=== PATIENT | female | born 1970 | race Caucasian/White ===

== ENCOUNTER 2023-09-17 03:15 | Inpatient (IN) | payer OTHER, SELFPAY ==
[2023-09-16] VITALS (11 sets, daily range): BP systolic 120–174; BP diastolic 58–116; PULSE 55–66
[2023-09-16 18:06] LABS: % Basophils 0.5 % (0-2); % Immature Granulocytes 0.4 % (0-0.5); % Lymphocytes 23.8 % (20.5-51.1); % Monocytes 8.6 % (1.7-9.3); % Neutrophils 65.7 % (42.2-75.2); Absolute Eosinophils 0.1 10^3/uL (0-0.7); Absolute Lymphocytes 1.9 10^3/uL (1.2-3.4); Absolute Monocytes 0.7 10^3/uL (0.1-0.6); Absolute Neutrophils 5.3 10^3/uL (1.4-6.5); Hematocrit 40.9 % (37.0-47.0); Hemoglobin 14.3 g/dL (12.0-16.0); Mean Corpuscular Volume 88.7 fL (81.0-99.0); Mean Platelet Volume 10.2 fL (7.4-10.4); Nucleated Red Blood Cells % 0 %; Platelet Count 225 10^3/uL (130-400); Red Blood Cell Count 4.61 10^6/uL (4.20-5.40)
[2023-09-16 18:19] LABS: INR 0.94; PT 12.8 Sec (11.4-14.6)
[2023-09-16 18:29] LABS: Blood Urea Nitrogen 34 mg/dl (7-17); Calcium 9.5 mg/dl (8.4-10.2); Carbon Dioxide 21 mmol/L (22-30); Chloride 106 mmol/L (98-107); Glucose 115 mg/dl (70-99); Sodium 139 mmol/L (135-145); eGFR > 60.00
[2023-09-16 18:33] LABS: Troponin I < 0.012 ng/ml
--- NOTE | 2023-09-16 19:06 | ED.GENMED ---
History of Present Illness
General
Chief Complaint: Fainting/Passed Out
Source: patient
Exam Limitations: none
Time Seen by Provider: 09/16/23 18:14
Nursing documentation reviewed up to this point in time: agreed with
Travel History
Have you had any contact with someone who has COVID-19?: No
Do you have any symptoms of coronavirus? Fever > 100 degrees, chills, cough, shortness of breath, sore throat, loss of taste or smell, muscle aches, or headache?: No
History of Present Illness
History of Present Illness:
Patient presents to ED for evaluation secondary to multiple syncopal episodes over the past 5 days. Patient states that on Monday, patient started to feel dizzy with nausea sensation when she was come back from work. Patient proceeded to check her
blood pressure and it was noted to be elevated. Patient has had similar symptoms in the past secondary to elevated blood pressure. After she checked her blood pressure, patient was walking to her bedroom, to lay down, when she passed out for few
minutes, without injury. Patient got up and was able to lay down in bed, where she has spent most of the days for the past 4 days. Unfortunately, patient has had number of similar passing out episodes at home, including this afternoon, when she
was sitting on the edge of her bed and passed out, falling forward onto the floor. Patient is complaining of head, neck pain, and nose pain. Denies preceding chest palpitations. Denies shortness of breath. Denies loss of sensation or weakness.
Denies blurred vision. 2 years ago, patient was treated with lisinopril, which she discontinued 1 year ago, when her blood pressure normalized, without consulting her primary care physician. Yesterday, patient called her primary care physician who
restarted lisinopril. And patient has taken 2 tablets since then. Denies recent illness. Denies recent travel. Denies recent surgery. Denies leg pain or swelling. Denies back pain. Denies family history of heart disease. Denies family
history of blood clots.
Review of Systems
Review of Systems
Allergies reviewed?: Yes
All Other Systems: ROS reviewed and negative except as documented in HPI and ROS
Constitutional: Reports no symptoms
EENT: Reports no symptoms
Respiratory: Reports no symptoms
Cardiac: Reports syncope
ABD/GI: Reports no symptoms
: Reports no symptoms
Musculoskeletal: Reports neck pain and other (nose pain)
Skin: Reports no symptoms
Neurological: Reports headache
Phy Exam
Physical Exam
Physical Exam:
Physical Exam
General: mild distress, not acutely ill. afebrile
Head: nc/at. eomi. erythema/swelling of bridge of nose noted.
Neck: supple. no meningeal signs.
Heart: s1/s2 regular rate and rhythm, no murmur. equal radial pulses.
Lungs: no acute respiratory distress. clear bilaterally. chest wall nontender to palpation.
Abdomen: normal bowel sounds. not tender.
Neuro: alert and oriented. no focal neurological deficits
Skin: no rash
Psychiatric: well kept. interactive and cooperative
Extremities: no edema. no calf tenderness.
Course
Orders/Labs/Results
Orders:
Orders
09/16/23 17:40
Electrocardiogram (*1) Urgent
Reason for Study: Syncope
EKG- Treatment ONCE
09/16/23 18:00
Basic Metabolic Panel Urgent
Complete Blood Count/With Diff Urgent
Prothrombin Time Urgent
Troponin I Urgent
09/16/23 18:32
CT Cervical Spine W/o Iv Contr Urgent
Comment:
Reason For Exam: trauma
CT Facial Bones W/o Iv Contras Urgent
Comment:
Reason For Exam: trauma
CT Head W/o Iv Contrast Urgent
Comment:
Reason For Exam: dizziness/syncope
09/16/23 20:26
Orthostatic VS- Treatment ONCE
09/16/23 22:36
0.9% Sodium Chloride 1000 ml [Nss] 1,000 ml IV BOLUS
Ondansetron Injectable [Zofran] 4 mg IV NOW STA
09/16/23 22:37
Meclizine [Antivert] 25 mg PO NOW STA
09/17/23 00:25
D-Dimer Urgent
09/17/23 02:38
Admit/Transfer Patient As Directed
Co-Sign Provider:
Level of Care: Inpatient admission
Assign to:: Telemetry
Physician / Group: John
Diagnosis: Recurrent Syncope
Reason for Telemetry: Syncope
Date to Stop Telemetry: 09/19/23
Time to Stop Telemetry: 11:00
Reason for Hospitalization: Recurrent Syncope
Expected length of stay greater than two midnights?: Yes
ELOS- Estimated Length of Stay in days: 2
I certify the patient meets the requirements for IP care: Yes
09/17/23 02:39
Code Status As Directed
Resuscitation Status: Full Code
09/17/23 02:42
Acetaminophen [Tylenol] 650 mg PO NOW STA
09/17/23 03:00
Flush (0.9% Sodium Chloride) [Flush (Nss)] See Dose Instructions IV PER PROTOCOL
09/17/23 04:04
Acetaminophen [Tylenol] 650 mg PO Q4HPRN PRN
HydrALAZINE [Apresoline] 5 mg IV Q6HPRN PRN
Morphine Sulfate 2 mg IV Q4HPRN PRN
09/17/23 04:04
CARDIOLOGY CONSULT Routine
Consulting Provider: Marty Carbone
Was physician already notified: No
Reason for consult: Recurrent Syncope
Consult Notification Routine
Specialty to Notify: Cardiology
Consult Notification Routine
Specialty to Notify: Gastroenterology
GASTROINTESTINAL CONSULT Routine
Consulting Provider: Dakota Gomez
Was physician already notified: No
Reason for consult: Dysphagia
Activity As Directed
Activity Level: Ambulate
With Assistance
Bladder Scan As Directed
Follow Bladder Retention/Intermittent Cath Algorithm?: Yes
PRN if no void in __ hours: 6
Frequency: Per Retention Algorithm
If Bladder Scan Result >: 400
then:: Straight cath
Cold Application As Directed
Location: Face
Frequency: Intermittent q1h
Duration of Application: No longer than 20 minutes
Method of Delivery: Ice packs
EKG with chest pain [ECG as needed] As Directed
ECG as needed for:: Chest Pain
I/O [Intake/ Output] As Directed
Frequency: Per unit guidelines
Neurological Checks As Directed
Frequency: q4h
Orthostatic Vital Signs As Directed
Orthostatic VS Frequency: BID
Pneumatic Compression Sleeves As Directed
Type: Knee high
Straight Cath As Directed
Frequency: Per Retention Algorithm
Additional Instructions: straight cath as needed per acute urinary retention algorithm for 24 hrs
Additional Instructions: for bladder scan greater than 400 mL
Vital Signs As Directed
Frequency: Per unit guidelines
Weight As Directed
Frequency: Daily
Oxygen Therapy [O2 Therapy] [RESP] Routine
Titrate/Wean O2 to maintain O2 sat greater than (%): 94
Ot Eval And Treat Routine
PT Consult [Pt Eval And Treat] Routine
Activity Level: Ambulate
With Assistance
Speech Therapy Eval & Treat Routine
DX Deep Vein Thrombosis Video Routine
09/17/23 06:00
EKG [Electrocardiogram (*1)] IN AM
Reason for Study: Chest Pain
09/17/23 06:03
Basic Metabolic Panel IN AM
Complete Blood Count/No Diff IN AM
Magnesium IN AM
TSH Reflex To Free T4 Routine
09/17/23 08:00
Sertraline HCl [Zoloft] 50 mg PO DAILY
09/18/23 Breakfast
Regular
At Your Request: Full Participation
09/19/23 11:00
DC Protocol for Telemetry ONCE
Abnormal Lab Results
09/16/23
18:00
Absolute Monos (auto) 0.7 H 10^3/uL
(0.1-0.6)
Carbon Dioxide 21 L mmol/L
(22-30)
BUN 34 H mg/dl
(7-17)
Glucose 115 H mg/dl
(70-99)
09/16/23 18:00
09/16/23 18:00
Vital Signs
Initial and Last Documented VS:
Initial Vital Signs
Temp Pulse Resp BP Pulse Ox
98.4 F 76 20 163/104 100
09/16/23 17:32 09/16/23 17:32 09/16/23 17:32 09/16/23 17:32 09/16/23 17:32
Last Documented Vital Signs
Temp Pulse Resp BP Pulse Ox
98.4 F 56 17 145/98 96
09/16/23 17:32 09/17/23 13:30 09/17/23 13:30 09/17/23 13:00 09/17/23 13:30
MDM/Problems Addressed
MDM/Problems Addressed:
History and exam concerning for multiple syncopal episodes, of unclear etiology at this point. Possible arrhythmic event versus vasovagal response versus less like VBI versus cerebellar infarct.
CT head/c-spine/facial bones: nasal fracture without any other abnormalities.
Pt treated symptomatically with IVF/zofran/meclizine. Unfortunately, patient remains symptomatic. As such, will admit for further evaluation and treatment.
*Critical Care Note
Total Time (30-74mins, 75-104mins- exclusive of procedures): Not Applicable
ED Attending Note
-
Portions of this chart may have been created with voice recognition software.� Occasional wrong word or��sound alike� substitutions may have occurred due to the inherent limitations of voice recognition software.
Discharge Plan
Departure
Patient Disposition: Admit
Date of Disposition: 09/17/23
Time of Disposition: 00:21
Presentation/result/management discussed w/ accepting MD/DO: Hospitalist
Discharge Problem:
Syncope
Interventions
Interventions:
*Risk Screen - Suicide Last Done: 09/16/23 17:48
*General Assessment Last Done: 09/16/23 17:48
*Neglect/Abuse Screening Last Done: 09/16/23 17:48
ED- Fall Risk Assessment Last Done: 09/16/23 17:48
*ED COVID-19 Vaccine History Last Done: 09/16/23 17:48
ED- Cardiac Assessment Last Done: 09/16/23 17:50
ED- Neurological Assessment Last Done: 09/16/23 17:48
[2023-09-16] MEDS: NSS 1000 IV (22:45)
[2023-09-16] MEDS: ZOFRAN 4 MG IV (22:46)
[2023-09-16] MEDS: ANTIVERT 25 MG PO (22:46)
[2023-09-17] VITALS (26 sets, daily range): BP systolic 102–162; BP diastolic 52–98; PULSE 53–61; BMI 25.6
[2023-09-17 01:01] LABS: D-Dimer 0.35 ug/mlFEU (0.00-0.50)
--- NOTE | 2023-09-17 02:43 | HPS.HSE ---
Family Physician
-
Family Physician: Bob Laguerre
Chief Complaint
-
Syncope
History of Present Illness
Patient is a 53y F with PMH significant for depression who presents to ED complaining of syncope and headache. Patient states that she has passed out 5 times in the past week. She notes that she checked her BP on Monday and it was quite
elevated at home. She had previously been on lisinopril for BP control, but notes that she has not taken this in a few years. She contacted her PCP late this week and got a new Rx for lisinopril which she has now been taking for the past 2 days.
Her symptoms have not appreciably improved.
This evening patient was seated on the edge of her bed and a friend was taking her BP. She lost consciousness during this process and fell forwards - landing on her face. She presented to the ED for further evaluation.
Currently, she complains of facial 'pressure' and headache. Evaluation in the ED reveals no evidence of intracranial abnormality. Minimally depressed nasal bone fracture is appreciated.
Patient notes that her symptoms of syncope typically occur after eating or drinking. She notes symptoms that will occur with any liquid - hot or cold - and occasionally with very dry foods. She reports a sensation of the food or liquid getting
'stuck' in the throat. She has no pain and she is always able to swallow, but with a strange tightness / fullness sensation. This causes her to feel lightheaded and patient has learned to quickly sit to avoid passing out. Family placed cameras in
her home and she has since realized that she has actually passed out on numerous occasions when she thought she had not. This has been ongoing for quite some time - not only this past week.
Medical History
Past Medical History
Past Medical History: Reports Other
Additional Past Medical History:
Hypertension
Anxiety / Depression
Cervical DDD / Radiculopathy (L C7-8)
Congenital Horseshoe Kidney
Past Surgical History: Reports Other
Additional Past Surgical History:
Horseshoe Kidney Surgery in Childhood
Social History
Tobacco: Non-smoker
Alcohol: Occasional (Rarely.)
Drug: Marijuana
Family History
Family History: Not pertinent
Allergies / Home Medications
Allergies reflects when Allergies were last updated in [facility].
Home Medications with original date entered in [facility]
Allergy/Medication List:
Allergies
Allergy/AdvReac Type Severity Reaction Status Date / Time
No Known Allergies Allergy Unverified 09/16/23 17:32
Home Medications
lisinopril 10 mg tablet 10 mg PO DAILY 09/16/23
sertraline 50 mg tablet (Zoloft) 50 mg PO DAILY 09/16/23
Review of Systems
-
History Source: Patient
A 12 point ROS was completed and negative except as noted: Yes
Constitutional: Denies Fever, Fatigue or Chills
EENT: Denies Sore Throat or Runny Nose
Respiratory: Denies Cough or Trouble Breathing
Cardiac: Reports Syncope (recurrent / frequent); Denies Chest Pain, Diaphoresis or Palpitations
Abdomen/GI: Reports Nausea and Other (Trouble swallowing intermittently.); Denies Abdominal Pain, Vomiting, Diarrhea, Constipated or Bloody Stools
: Denies Dysuria or Frequency
Neurological: Reports Headache and Other (Lightheaded); Denies Dizzy
Psych: Denies Depression or Anxiety
Physical Exam
Vital Signs
Vital Signs
Temp Pulse Resp BP Pulse Ox
98.4 F 64 12 114/68 98
09/16/23 17:32 09/17/23 02:30 09/17/23 02:30 09/17/23 02:00 09/17/23 02:30
Physical Exam
General: Other (53y F in no acute distress.)
HEENT: Moist mucous membranes, PERRLA and Other (Some facial swelling and developing ecchymosis around the eyes.)
Respiratory: Clear; No Wheezes, Rales or Rhonchi
Cardiac: S1/S2, Regular Rhythm and Bradycardia; No Murmur
GI: Soft, Non Tender, Non Distended and Normal Bowel Sounds
Musculoskeletal: No Clubbing, No Cyanosis and No Edema
Neuro: AO x 3
Laboratory Results
-
09/16/23 18:00
09/16/23 18:00
Laboratory Results
PT 12.8 Sec (11.4-14.6) 09/16/23 18:00
INR 0.94 09/16/23 18:00
Total Bilirubin Cancelled 09/16/23 18:00
AST Cancelled 09/16/23 18:00
ALT Cancelled 09/16/23 18:00
Alkaline Phosphatase Cancelled 09/16/23 18:00
Troponin I < 0.012 ng/ml 09/16/23 18:00
Impression/Plan
-
A/P: Patient is a 53y F with PMH significant for hypertension and depression who presents to ED complaining of recurrent syncope and facial pain s/p fall.
Recurrent Syncope
- Admit for further evaluation and treatment.
- Monitor on telemetry to evaluate for arrhythmia.
- Patient with degree of resting bradycardia at present.
- Suspect vasovagal response - likely triggered by swallowing difficulty / sensation and resulting in syncope.
- Has apparently been a very frequent and long-standing issue for this patient.
- Will ask cardiology to evaluate as may benefit from ambulatory monitoring if no significant arrhythmia noted during stay.
- Evaluate swallow dysfunction as noted below.
Nasal Bone Fracture
Headache
- CT imaging in the ED is without acute abnormality in the head or cervical spine.
- Facial bones show minimally depressed fracture of the nasal bone.
- Supportive care including cold application, pain control, etc.
- Monitor neurologic status and repeat imaging if any significant changes.
Swallow Dysfunction
- Patient describes fullness / difficulty swallowing with solids and liquids.
- Has been longstanding issue.
- Speech therapy evaluation.
- GI evaluation for additional recommendations / evaluation.
Benign Hypertension
- BP markedly elevated for the past week according to the patient.
- Previously on lisinopril, but has been off of this for a few years.
- Follow BP closely - has improved significantly since arrival without specific intervention.
- Hydralazine for very high BP.
- Consider starting PO regimen if needed for adequate BP control.
- Would avoid chronotropic meds given baseline bradycardia and recurrent syncope.
Anxiety / Depression
- Stable. Continue Zoloft. No recent changes in med / dose / etc.
DVT Prophylaxis: SCDs
Code Status: Full
[2023-09-17] MEDS: TYLENOL 650 MG PO (02:51)
[2023-09-17 06:19] LABS: Hematocrit 37.8 % (37.0-47.0); Mean Corp Hgb Conc. 34.4 g/dL (33.0-37.0); Mean Corpuscular Hgb 31.2 pg (27.0-31.0); Mean Corpuscular Volume 90.6 fL (81.0-99.0); Mean Platelet Volume 9.8 fL (7.4-10.4); Platelet Count 179 10^3/uL (130-400); Red Blood Cell Count 4.17 10^6/uL (4.20-5.40); White Blood Cell Count 5.8 10^3/uL (4.8-10.8)
[2023-09-17 06:37] LABS: Blood Urea Nitrogen 25 mg/dl (7-17); Calcium 8.6 mg/dl (8.4-10.2); Carbon Dioxide 23 mmol/L (22-30); Chloride 110 mmol/L (98-107); Glucose 106 mg/dl (70-99); Potassium 4.4 mmol/L (3.5-5.1); Sodium 139 mmol/L (135-145); eGFR > 60.00
[2023-09-17] MEDS: ZOLOFT 50 MG PO (07:50)
--- NOTE | 2023-09-17 09:23 | CON.CAR ---
Consultation
Consultation Request
Date/Time Consultation Requested: 09/17/2023 7: 00
Date/Time Consultation Performed: 09/17/2023 8: 00
Requesting Provider: Jes
Performing Provider: Tona
Reason for Consultation: Syncope
Medical History
-
Chief Complaint: Syncope
History of Present Illness:
Marce has a history of hypertension. She has had syncope for many years. It usually is in the setting of drinking water or eating. It has happened in the past with standing as well.
She has had 5 syncopal episodes over the past week. She has had nausea as well. There has been no chest pain or shortness of breath. At least one of the episodes was associated with palpitations. She tries to sit down when the episodes occur.
However yesterday she passed out. She has witnessed the episodes on a camera at her house. Of note with the episode yesterday she had facial trauma. She did not have any palpitations chest pain or shortness of breath at the time of the event.
She admits to significant stress taking care of her mother on hospice.
Past Medical History
Past Medical History: HTN, Psychiatric (Anxiety/depression) and Other (Cervical disc disease with radiculopathy in cervical spine)
Past Surgical History: Other (Horseshoe kidney surgery as a child, )
Social History
Tobacco: Non-Smoker
Alcohol: None
Drug: Marijuana
Personal:
Living: With Family
Employment: Retired
Family History
Family History: Other (There is no family history of premature coronary artery disease)
Allergies / Home Medications
Allergy/AdvReac Type Severity Reaction Status Date / Time
No Known Allergies Allergy Unverified 09/16/23 17:32
Medication Instructions Recorded Confirmed Type
lisinopril 10 mg tablet 10 mg PO DAILY 09/16/23 09/16/23 History
sertraline 50 mg tablet (Zoloft) 50 mg PO DAILY 09/16/23 09/16/23 History
Review of Systems
-
History Source: Patient
All other systems: Negative unless noted
Constitutional: No Symptoms
EENT: No Symptoms
Respiratory: No Symptoms
Cardiac: Syncope
Abdomen/GI: Nausea
: No Symptoms
Musculoskeletal: Other (Complains of pain from facial trauma)
Skin: No Symptoms
Neurological: Dizzy
Endocrine: No Symptoms
Hematologic/Lymphatic: No Symptoms
Physical Exam
Vital Signs
Temp Pulse Resp BP Pulse Ox
98.4 F 55 15 118/84 99
09/16/23 17:32 09/17/23 08:45 09/17/23 08:45 09/17/23 08:00 09/17/23 08:45
Lab Results
09/17/23 06:03
09/17/23 06:03
Troponin I < 0.012 ng/ml 09/16/23 18:00
General: Well developed, well nourished in NAD.
Neck: Supple, no JVD, HJR, carotids +2 B/L, no bruits bilaterally.
Heart: Non displaced PMI, RRR, no murmurs, No S3, S4, no rubs.
Lungs: Clear to auscultation bilaterally, no wheeze, rhonchi, rubs bilaterally,
normal expiratory phase.
Abdomen: Normal bowel sounds, soft, non-tender, non-distended.
Extremities: No clubbing, cyanosis or edema bilaterally.
Neuro: Grossly nonfocal, awake, alert and oriented x3.
Impression / Plan
-
Impression:
Syncope
History of hypertension
Anxiety/depression
History of congenital horseshoe kidney surgery
Plan:
She has syncopal episodes which are likely vasovagal etiology
They occur with drinking fluids or eating at times and perhaps she has esophageal dysfunction triggering a vagal event
She has had issues with hypertension over the past week as well but blood pressure is okay
Will check echocardiogram to exclude structural heart disease
Continue to follow on telemetry
She is seeing speech therapy and will await evaluation as correcting a esophageal/swallowing issue may prevent further episodes in the future
She should try to hydrate is much as possible and avoid prolonged standing
Might consider outpatient monitor
Data Reviewed
-
EKG: Tracing Personally Visualized and interpreted
Medical Tests (Nuc Med, Echo etc): Report Reviewed by me
Labs: Labs Reviewed by me
Old Records: Reviewed
--- NOTE | 2023-09-17 09:54 | W.PN.HOSP.TC ---
Today's Communication/Plan
-
Awaiting echo
Monitor heart rate
Assessment / Plan
Assessment / Plan
53y F with PMH significant for hypertension and depression who presents to ED complaining of recurrent syncope and facial pain s/p fall.
1. Recurrent Syncope, chronic issue
- Patient with degree of resting bradycardia at present.
- Suspect vasovagal response - likely triggered by swallowing difficulty / sensation and resulting in syncope.
- Has apparently been a very frequent and long-standing issue for this patient.
- Monitor on telemetry to evaluate for arrhythmia.
- cardiology to evaluate - echo pending
- Evaluate swallow dysfunction
2. Nasal Bone Fracture with Headache
�- CT imaging in the ED is without acute abnormality in the head or cervical spine.
�- Facial bones show minimally depressed fracture of the nasal bone.
- Continue Supportive care including cold application, pain control
- Monitor neurologic status and repeat imaging if any significant changes.
3. Swallow Dysfunction - chronic problem
�- Patient describes fullness / difficulty swallowing with solids and liquids.
�- Has been longstanding issue.
- Speech therapy evaluation.
- GI evaluation for additional recommendations / evaluation.
4. Benign Hypertension - chronic
- BP markedly elevated for the past week according to the patient.
- Previously on lisinopril, but has been off of this for a few years.
- Follow BP closely - has improved significantly since arrival.
- Hydralazine for very high BP.
- Consider starting PO regimen if needed for adequate BP control.
- avoid chronotropic meds given baseline bradycardia and recurrent syncope.
5. Anxiety / Depression - Stable.�
- Continue Zoloft.� No recent changes in med / dose / etc.
DVT Prophylaxis:� SCDs
Code Status:� Full
Anticipated Discharge: 24 - 48 hours
Subjective/Interval History
-
Date of Service: September 17, 2023
Objective Data
-
Labs:
Laboratory Results
09/17/23
06:03
WBC 5.8
Hgb 13.0
Hct 37.8
Plt Count 179 D
Sodium 139
Potassium 4.4
Chloride 110 H
Carbon Dioxide 23
BUN 25 H
Creatinine 0.6
Glucose 106 H
Calcium 8.6
Vital Signs:
Vital Signs
Temp Pulse Resp BP Pulse Ox
98.4 F 55 15 118/84 99
09/16/23 17:32 09/17/23 08:45 09/17/23 08:45 09/17/23 08:00 09/17/23 08:45
--- NOTE | 2023-09-17 10:48 | PTOTSP ---
Speech Therapy
Swallowing Function: [employer]2B SALES MANAGER observed patient with several bites of cracker and sips of thin liquids in which patient appeared to tolerate as she did not exhibit any overt clinical s/sx of aspiration. Patient reported the food and liquid getting 'stuck'
in her sternum area.
Patient shared that she has been experiencing this 'stuck' sensation for a few weeks but has been experiencing these syncope episides (after PO) for years. OF note, patient reports having a 'pinched 7 and 8 nerve' for approximately 1 year.
Given the above information, recommend consideration of VSE to quantify her swallow function. [employer]2B SALES MANAGER noted GI consult placed.
Recommendations:
1) Continuation of regular consistency solids and thin liquids
2) Standard aspiration precautions
3) Medications as tolerated
4) Consideration of VSE
5) Consideration of GI consult
Plan: B2B SALES MANAGER will continue to follow; pending hospitalization.
--- NOTE | 2023-09-17 14:06 | CON.GI ---
Consultation
-
Date/Time Consultation Requested: 09/17/2022
Date/Time Consultation Performed: 09/17/2022
Performing Provider: Dakota Gomez
Reason for Consultation: dysphagia
Medical History
Chief Complaint / HPI
Chief Complaint: dysphagia
History of Present Illness:
Patient is a 53-year-old female with history of depression who presents with syncope. She had multiple episodes of syncope in the past and she passed out about 5 times this past week. She reports that her events occur when she has a sensation of
'liquid getting stuck' in her throat. This has been ongoing for past few years. Never had been evaluated for this. She denies dysphagia to solid food however. Her sensation of dysphagia only occurs with liquid. She denies weight loss. No
odynophagia. Never had EGD.
Past Medical History
Past Medical History: HTN and Other
Past Surgical History: Other
Social History
Tobacco: Non-Smoker
Alcohol: Occasional
Allergies / Home Medications
Allergy/AdvReac Type Severity Reaction Status Date / Time
No Known Allergies Allergy Unverified 09/16/23 17:32
Medication Instructions Recorded
lisinopril 10 mg tablet 10 mg PO DAILY 09/16/23
sertraline 50 mg tablet (Zoloft) 50 mg PO DAILY 09/16/23
Review of Systems
Vital Signs
Temp Pulse Resp BP Pulse Ox
98.4 F 56 17 145/98 96
09/16/23 17:32 09/17/23 13:30 09/17/23 13:30 09/17/23 13:00 09/17/23 13:30
Physical Exam
Exam
General: Well Developed and Well Nourished
HEENT: Normocephalic and Anicteric
Respiratory: Clear
Cardiac: S1/S2
GI: Soft, Non Tender, Non Distended and Normal Bowel Sounds
Results
WBC 5.8 10^3/uL (4.8-10.8) 09/17/23 06:03
Hgb 13.0 g/dL (12.0-16.0) 09/17/23 06:03
Hct 37.8 % (37.0-47.0) 09/17/23 06:03
MCV 90.6 fL (81.0-99.0) 09/17/23 06:03
Plt Count 179 10^3/uL (130-400) D 09/17/23 06:03
Absolute Neuts (auto) 5.3 10^3/uL (1.4-6.5) 09/16/23 18:00
PT 12.8 Sec (11.4-14.6) 09/16/23 18:00
INR 0.94 09/16/23 18:00
Sodium 139 mmol/L (135-145) 09/17/23 06:03
Potassium 4.4 mmol/L (3.5-5.1) 09/17/23 06:03
Chloride 110 mmol/L (98-107) H 09/17/23 06:03
Carbon Dioxide 23 mmol/L (22-30) 09/17/23 06:03
BUN 25 mg/dl (7-17) H 09/17/23 06:03
Creatinine 0.6 mg/dL (0.6-1.0) 09/17/23 06:03
Calcium 8.6 mg/dl (8.4-10.2) 09/17/23 06:03
Total Bilirubin Cancelled 09/16/23 18:00
AST Cancelled 09/16/23 18:00
ALT Cancelled 09/16/23 18:00
Alkaline Phosphatase Cancelled 09/16/23 18:00
Diagnostic Image Results:
Prior GI Procedures:
EGD:
Colonoscopy:
Assessment / Plan
-
Patient is a 53-year-old female with history of HTN depression who presents with multiple episodes of syncope which reportedly is associated with / triggered by dysphagia.
Impression / Rec:
1. Dysphagia - she complains of liquid being 'stuck' in her throat. She denies dysphagia to solid foods. No associated weight loss or odynophagia. She had never been evaluated by GI or other specialist for this. Her dysphagia symptoms are
suggestive of underlying motility disorder rather than a structural/anatomical lesion. Her reported association with multiple and persistent syncopal episode with her dysphagia seems quite atypical. Will consider possible endo eval. Will follow.
Total Time Spent with Patient (in minutes): 55
-
-
Thank you for consultation and allowing me to participate in the patient's care. Please call the drilling field professional GI physician during the after hours with any questions or concerns.
--- NOTE | 2023-09-17 15:46 | CM ---
CM reviewed medical records. CM met with patient in room. Confirmed demographics. Patient denied history of VN, SNF or DME. patient is active with her PCP. Patient uses [facility] in [place].
PLAN: home no needs.
[2023-09-17] MEDS: MORPHINE SULFATE 2 MG IV ×2 (17:37→22:02)
--- NOTE | 2023-09-17 20:00 | PTCARENOTE ---
Emphasized to pt need to call for assist to get OOB. Pt verbalizes understanding that she is not to get up alone.
[2023-09-17] MEDS: FLUSH (NSS) 2 FLUSH IV (22:04)
[2023-09-18 03:10] VITALS: BP 134/66
[2023-09-18] MEDS: MORPHINE SULFATE 2 MG IV ×5 (03:12→20:40)
[2023-09-18] MEDS: FLUSH (NSS) 2 FLUSH IV (03:15)
[2023-09-18 05:26] VITALS: BMI 25.6
[2023-09-18] MEDS: TYLENOL 650 MG PO ×2 (05:27→18:03)
--- NOTE | 2023-09-18 06:00 | PTCARENOTE ---
Pt stated through the night that she had lightheadedness as usual.
[2023-09-18 07:00] VITALS: BP 118/74
[2023-09-18] MEDS: ZOLOFT 50 MG PO (07:47)
[2023-09-18 08:09] LABS: Hematocrit 37.8 % (37.0-47.0); Mean Corp Hgb Conc. 34.4 g/dL (33.0-37.0); Mean Corpuscular Hgb 30.6 pg (27.0-31.0); Mean Corpuscular Volume 88.9 fL (81.0-99.0); Platelet Count 192 10^3/uL (130-400); Red Blood Cell Count 4.25 10^6/uL (4.20-5.40); Red Cell Dist. Width 12.9 % (11.5-14.5)
[2023-09-18 08:26] LABS: Blood Urea Nitrogen 20 mg/dl (7-17); Calcium 8.8 mg/dl (8.4-10.2); Carbon Dioxide 26 mmol/L (22-30); Chloride 109 mmol/L (98-107); Estimated Creatinine Clearance 73 ml/min; Glucose 104 mg/dl (70-99); Potassium 4.5 mmol/L (3.5-5.1); Sodium 139 mmol/L (135-145); eGFR > 60.00
--- NOTE | 2023-09-18 10:59 | W.PN.GI.CBS2 ---
Addendum entered and electronically signed by Dakota Gomez MD 09/18/23 19:32:
I saw and examined the patient.
The PA's note was reviewed and I agree with the note.
Comment:
Agree with esophagram, will consider endo eval pending results. Will follow.
Original Note:
Today's Communication / Plan
-
concern for deglutition syncope
appreciate cards input
pt also hx cervical DDD but no prior surgery
check esophagram to rule out structural etiology, t/c EGD and manometry testing
discussed trial of using straw (which pt has done in past) to drink but states she does not usually gulp liquids and sit while drinking (to avoid falling if syncope occurs)
will follow
Assessment / Plan
-
Patient is a 53-year-old female with history of HTN depression who presents with multiple episodes of syncope which reportedly is associated with / triggered by dysphagia for last 5 years. Denies prior swallowing evaluation.
Impression / Rec:
- Dysphagia triggering syncope
other medical problems:
HTN
anxiety/depression
cervical DDD
radiculopathy
PLAN:
concern for deglutition syncope
appreciate cards input
pt also hx cervical DDD but no prior surgery
check esophagram to rule out structural etiology, t/c EGD and manometry testing
discussed trial of using straw (which pt has done in past) to drink but states she does not usually gulp liquids and sit while drinking (to avoid falling if syncope occurs)
will follow
Subjective
Subjective
Date of Service: September 18, 2023
on regular diet no stools no issues overnight
Objective
Data Reviewed
Laboratory Data:
Laboratory Results
09/18/23 07:09
09/18/23 07:09
Laboratory Results
PT 12.8 Sec (11.4-14.6) 09/16/23 18:00
INR 0.94 09/16/23 18:00
Magnesium 2.0 mg/dl (1.6-2.3) 09/17/23 06:03
Total Bilirubin Cancelled 09/16/23 18:00
AST Cancelled 09/16/23 18:00
ALT Cancelled 09/16/23 18:00
Alkaline Phosphatase Cancelled 09/16/23 18:00
Vital Signs and I&O:
Vital Signs
Temp Pulse Resp BP Pulse Ox
98.1 F 54 18 118/74 96
09/18/23 07:00 09/18/23 07:00 09/18/23 07:00 09/18/23 07:00 09/18/23 07:00
I&O
09/17/23 09/18/23 09/19/23
06:59 06:59 06:59
Intake Total 240 / 240
Balance 240 / 240
Physical Exam
Physical Exam
HEENT: Anicteric, Moist mucous membranes and Other (facial bruising )
Cardiology: Normal Sinus Rhythm
Pulmonary: Clear
GI: Soft, Non Distended and Non Tender
Extremities: No Edema
Neuro: Non Focal
[2023-09-18 11:00] VITALS: BP 140/82; BP 144/92; BP 160/98; PULSE 48; PULSE 58; PULSE 61
--- NOTE | 2023-09-18 12:12 | W.PN.CARDCBS ---
Addendum entered and electronically signed by Kev Villalobos DO 09/18/23 15:47:
I saw and examined the patient.
The Field Aide's note was reviewed and I agree with the note.
Comment:
Plan:
Work up for syncope ongoing including GI work up with esophagram for deglutition syncope
Echo unremarkable with preserved EF and no significant valve disease
7 day BardyCAM to be placed prior to d/c to be comprehensive
Outpt cardiac follow up to be arranged.
Original Note:
Today's Communication / Plan
-
Arranging for a 7 day CAM to be placed prior to d/c
Impression / Plan
-
PCP: Dr. Bob Laguerre
Cardiology: None prior to admission
Impression:
Syncope, possible deglutition syncope
History of hypertension
Anxiety/depression
History of congenital horseshoe kidney surgery
Echo 09/18/23: Study pending
Plan:
-GI notes reviewed and patient is scheduled for an esophagram to work-up possible structural etiology for her dysphagia.
-GI notes also suggest possible deglutition syncope and recommended to patient that she use a straw to drink, avoid gulping and stay seated while drinking
-Echo ordered and study pending
-No pauses of significant bradycardia on tele
-Arranging for a 7 day CAM monitor to be placed prior to d/c
-Will arrange for outpatient cardiology f/u
Progress Note - Addiction Social Worker
Subjective
Date of Service: September 18, 2023
No episodes of synocpe of near syncope in the last 24 hours
Objective
Labs:
09/18/23 07:09
09/18/23 07:09
Labs
Hgb 13.0 g/dL (12.0-16.0) 09/18/23 07:09
Hct 37.8 % (37.0-47.0) 09/18/23 07:09
Plt Count 192 10^3/uL (130-400) 09/18/23 07:09
PT 12.8 Sec (11.4-14.6) 09/16/23 18:00
INR 0.94 09/16/23 18:00
Sodium 139 mmol/L (135-145) 09/18/23 07:09
Potassium 4.5 mmol/L (3.5-5.1) 09/18/23 07:09
BUN 20 mg/dl (7-17) H 09/18/23 07:09
Creatinine 0.7 mg/dL (0.6-1.0) 09/18/23 07:09
Glucose 104 mg/dl (70-99) H 09/18/23 07:09
Troponins
09/16/23
18:00
Troponin I < 0.012
Vital Signs and I&O:
Vital Signs
Temp Pulse Resp BP Pulse Ox
97.9 F 48 18 140/82 100
09/18/23 11:00 09/18/23 11:00 09/18/23 11:00 09/18/23 11:00 09/18/23 11:00
Vital Signs
Temp Pulse Resp BP Pulse Ox
97.9 F 48 18 140/82 100
09/18/23 11:00 09/18/23 11:00 09/18/23 11:00 09/18/23 11:00 09/18/23 11:00
Intake & Output
09/16/23 09/17/23 09/18/23 09/19/23
06:59 06:59 06:59 06:59
Intake Total 240 / 240
Balance 240 / 240
Physical Exam
Physical Exam
Gen: NAD. AAO x3
HEENT: EOMI
Heart: Reg
Lungs: CTA B/L
Abdomen: +BS
Extremities: No edema bilaterally.
Neuro: Grossly nonfocal
--- NOTE | 2023-09-18 13:04 | CM ---
Patient seen bedside, reports no new concerns. CM will continue to follow for discharge planning needs.
Plan; home no needs anticipated.
[2023-09-18 15:00] VITALS: BP 154/83
--- NOTE | 2023-09-18 17:14 | W.PN.HOSP.TC ---
Today's Communication/Plan
-
see outlined plan
Assessment / Plan
Assessment / Plan
Assessment:
Recurrent syncope, acute on chronic
- concern for deglutition syncope (vasovagal syncope related to swallowing)
- Cards evaluating
- Echo normal. Setup outpatient 7 day monitor. Continue to monitor tele.
- GI evaluating, Esophagram ordered. May need EGD/Manometry
Nasal Bone Fracture with Headache
- CT imaging in the ED is without acute abnormality in the head or cervical spine.
- Facial bones show minimally depressed fracture of the nasal bone.
- supportive care, cold application, pain control
Swallow Dysfunction - chronic problem
- Patient describes fullness / difficulty swallowing with solids and liquids.
- Has been longstanding issue.
- Speech evaluating, possible VSE in AM
- GI following as above
Essentil Hypertension - chronic
- continue Lisinopril 10mg daily in AM if labs ok
- prn Hydralazine
Anxiety/Depression - Stable.�
- Continue Zoloft.�No recent changes in med/dose/etc.
DVT Prophylaxis:�SCDs
Code Status:�Full
Anticipated Discharge: 24 - 48 hours
Subjective/Interval History
-
Date of Service: September 18, 2023
no new complaints
Objective Data
-
Labs:
Laboratory Results
09/18/23
07:09
WBC 5.0
Hgb 13.0
Hct 37.8
Plt Count 192
Sodium 139
Potassium 4.5
Chloride 109 H
Carbon Dioxide 26
BUN 20 H
Creatinine 0.7
Glucose 104 H
Calcium 8.8
Vital Signs:
Vital Signs
Temp Pulse Resp BP Pulse Ox
97.9 F 51 18 154/83 100
09/18/23 15:00 09/18/23 15:00 09/18/23 15:00 09/18/23 15:00 09/18/23 15:00
I&O
09/17/23 09/18/23 09/19/23
06:59 06:59 06:59
Intake Total 240 / 240
Balance 240 / 240
Physical Exam
-
General: No Apparent Distress
HEENT: Normocephalic and Atraumatic
Respiratory: Negative Wheezes or Rales
Cardiac: Regular Rhythm and S1/S2
GI: Soft and Nontender
Genito-urinary: No Costovertebral Tender
Musculoskeletal: No Edema
Neuro: AO x 3
Hematologic / Lymphatic: No Lymphadenopathy
Psych: Calm
Data Reviewed
-
Total Time Spent with Patient (in minutes): 47
Labs: Labs Reviewed by me
[2023-09-18 19:15] VITALS: BP 139/84; BP 147/91; BP 164/92; PULSE 53; PULSE 57; PULSE 60
[2023-09-18 23:10] VITALS: BP 123/76
[2023-09-19] VITALS (7 sets, daily range): BP systolic 105–151; BP diastolic 69–99; PULSE 58–63; BMI 25.3
[2023-09-19] MEDS: MORPHINE SULFATE 2 MG IV ×5 (01:26→21:29)
[2023-09-19] MEDS: ZOLOFT 50 MG PO (07:42)
--- NOTE | 2023-09-19 08:08 | PTCARENOTE ---
Notified provider that the patient had a 2.2 second pause on telemetry at 0757 and is intermittently bradycardic to HR 30's. The patient reports feeling like she 'passed out' around the time of the alarm pause an endorses dizziness. The patient
reports feeling faint and weak. MD instructed to keep patient in bed and notified cardiology. EKG ordered and performed.
--- NOTE | 2023-09-19 08:15 | PTCARENOTE ---
aware that patient received morning PO Zoloft.
[2023-09-19 08:53] LABS: Blood Urea Nitrogen 17 mg/dl (7-17); Calcium 9.4 mg/dl (8.4-10.2); Carbon Dioxide 26 mmol/L (22-30); Chloride 103 mmol/L (98-107); Estimated Creatinine Clearance 76 ml/min; Glucose 101 mg/dl (70-99); Potassium 4.1 mmol/L (3.5-5.1); Sodium 140 mmol/L (135-145); eGFR > 60.00
--- NOTE | 2023-09-19 12:00 | W.PN.HOSP.TC ---
Today's Communication/Plan
-
await further direction by GI on workup
follow Cards recs
Assessment / Plan
Assessment / Plan
Assessment:
Recurrent syncope, acute on chronic
- concern for deglutition syncope (vasovagal syncope related to swallowing)
- Echo normal
- Tele with bradycardia, pause on 09/19/23 after patient attempted to swallow a pill. Tele otherwise unremarkable independent of swallowing.
- Follow cardiology recs.
- GI following
- Esophagram: Mild to moderate gastroesophageal reflux. Mild, likely peptic stricture of the distal esophagus, and possible associated subtle esophagitis. Delayed passage of a 13 mm barium tablet.
- await further GI workup
- if no GI intervention can treat underlying etiology, may need pacemaker to prevent the pauses/syncope.
Nasal Bone Fracture with Headache
- CT imaging in the ED is without acute abnormality in the head or cervical spine.
- Facial bones show minimally depressed fracture of the nasal bone.
- supportive care, cold application, pain control
Swallow Dysfunction - chronic problem
- Patient describes fullness / difficulty swallowing with solids and liquids.
- Esophagram: Mild to moderate gastroesophageal reflux. Mild, likely peptic stricture of the distal esophagus, and possible associated subtle esophagitis. Delayed passage of a 13 mm barium tablet.
- await further GI workup
- if no GI intervention can treat underlying etiology, may need pacemaker to prevent the pauses/syncope.
Essentil Hypertension - chronic
- hold Lisinopril
- prn Hydralazine
Anxiety/Depression - Stable.�
- Continue Zoloft.�No recent changes in med/dose/etc.
DVT Prophylaxis:�SCDs
Code Status:�Full
Anticipated Discharge: 24 - 48 hours
Subjective/Interval History
-
Date of Service: September 19, 2023
bradycardia is pause this morning when taking a pill/swallowing
was lightheaded and dizzy but now resolved
Objective Data
-
Labs:
Laboratory Results
09/19/23
06:29
Sodium 140
Potassium 4.1
Chloride 103
Carbon Dioxide 26
BUN 17
Creatinine 0.6
Glucose 101 H
Calcium 9.4
Vital Signs:
Vital Signs
Temp Pulse Resp BP Pulse Ox
98.5 F 58 18 124/85 100
09/19/23 11:00 09/19/23 11:00 09/19/23 11:00 09/19/23 11:00 09/19/23 11:00
I&O
09/18/23 09/19/23 09/20/23
06:59 06:59 06:59
Intake Total 240 / 240 480 / 480
Balance 240 / 240 480 / 480
Physical Exam
-
General: No Apparent Distress
HEENT: Normocephalic and Atraumatic
Respiratory: Negative Wheezes
Cardiac: Regular Rhythm and S1/S2
GI: Soft
Genito-urinary: No Costovertebral Tender
Neuro: AO x 3
Hematologic / Lymphatic: No Lymphadenopathy
Psych: Calm
Data Reviewed
-
Total Time Spent with Patient (in minutes): 47
Labs: Labs Reviewed by me
--- NOTE | 2023-09-19 14:36 | W.PN.GI.CBS2 ---
Addendum entered and electronically signed by Estrella Ledezma MD 09/19/23 20:18:
I saw and examined the patient.
The ASSISTANT TRACK COACH or PA's note was reviewed and I agree with the note.
Comment: 53-year-old female with history of hypertension presenting with episodes of syncope after swallowing liquids which happens sporadically, has been having these episodes in the last 5 years, once or twice a month but in the last 1 year, has
not had episodes. No trouble swallowing solids, liquids or pills but syncopal episodes happen after liquids. No abdominal pain, nausea or vomiting. No heartburn or trouble swallowing. No constipation, diarrhea, blood in the stool or black stool.
Never had upper endoscopy or colonoscopy. No NSAID use.
Reports being admitted to [facility] few years ago but not had an endoscopy at that time. Esophagram with barium tablet today showing mild to moderate reflux, possible peptic stricture in the distal esophagus and possible esophagitis.
-Plan for upper endoscopy tomorrow
N.p.o. past midnight
If stricture noted, possible dilation.
Noted cardiology evaluation as well.
Needs outpatient colonoscopy at some point.
Will follow
Original Note:
Today's Communication / Plan
-
concern for deglutition syncope
further episodes of syncope today
UGI as noted with distal esophageal stricture
plan for EGD in AM
ok for clear diet
cards following for need for underlying pacer
consider OP motility testing if EGD stable
discussed trial of using straw (which pt has done in past) to drink but states she does not usually gulp liquids and sit while drinking (to avoid falling if syncope occurs)
will follow
Assessment / Plan
-
Patient is a 53-year-old female with history of HTN depression who presents with multiple episodes of syncope which reportedly is associated with / triggered by dysphagia for last 5 years. Denies prior swallowing evaluation.
09/19 esophagram with barium tablet-- hypopharynx and cervical esophagus unremarkable, mild to moderate GERD. mild likely peptic stricture distal esophagus and possible subtle esophagitis, delayed passage of 13 mm barium tablet
Impression / Rec:
- Dysphagia triggering syncope
-concern for peptic stricture distal esophagus with GERD/esophagitis and delayed passage of 13 mm barium tablet
other medical problems:
HTN
-anxiety/depression
-cervical DDD
-radiculopathy
PLAN:
concern for deglutition syncope
further episodes of syncope today
UGI as noted with distal esophageal stricture
plan for EGD in AM
ok for clear diet
cards following for need for underlying pacer
consider OP motility testing if EGD stable
discussed trial of using straw (which pt has done in past) to drink but states she does not usually gulp liquids and sit while drinking (to avoid falling if syncope occurs)
will follow
Subjective
Subjective
Date of Service: September 19, 2023
NPO, still with episode of feeling of passing out this am and with EGD study
Objective
Data Reviewed
Laboratory Data:
Laboratory Results
09/18/23 07:09
09/19/23 06:29
Laboratory Results
PT 12.8 Sec (11.4-14.6) 09/16/23 18:00
INR 0.94 09/16/23 18:00
Magnesium 2.0 mg/dl (1.6-2.3) 09/17/23 06:03
Total Bilirubin Cancelled 09/16/23 18:00
AST Cancelled 09/16/23 18:00
ALT Cancelled 09/16/23 18:00
Alkaline Phosphatase Cancelled 09/16/23 18:00
Vital Signs and I&O:
Vital Signs
Temp Pulse Resp BP Pulse Ox
98.5 F 58 18 124/85 100
09/19/23 11:00 09/19/23 11:00 09/19/23 11:00 09/19/23 11:00 09/19/23 11:00
I&O
09/18/23 09/19/23 09/20/23
06:59 06:59 06:59
Intake Total 240 / 240 480 / 480
Balance 240 / 240 480 / 480
Physical Exam
Physical Exam
HEENT: Anicteric, Moist mucous membranes and Other (facial bruising)
Cardiology: Normal Sinus Rhythm
Pulmonary: Clear
GI: Soft, Non Distended and Non Tender
Extremities: No Edema
Neuro: Non Focal
--- NOTE | 2023-09-19 16:57 | W.PN.CARDCBS ---
Addendum entered and electronically signed by Haider Staton MD 09/19/23 17:57:
I saw and examined the patient.
The House Detective's note was reviewed and I agree with the note.
Comment: GEN: No distress, awake, Ox3
HEENT: supple, anicteric, mmm
LUNGS: CTA, no wheezes/rales
CV: Reg, S1/S2, 1/6 syst LSB, no gallop
ABD: soft, BS+, NT/ND
EXT: No edema
NEURO: Gross non-focal
SKIN: No rash
Plan:
No new tele events
Would consider pacemaker if no clear reversible GI treatment for deglutition syncope can be found.
Pacemaker would be last option in 53 year old.
Original Note:
Today's Communication / Plan
-
Continue to follow on tele
Impression / Plan
-
PCP: Dr. Bob Laguerre
Cardiology: None prior to admission
Impression:
Syncope, possible deglutition syncope
History of hypertension
Anxiety/depression
History of congenital horseshoe kidney surgery
Echo 09/18/23: EF 57%, no significant valve disease
Plan:
-Patient had evidence of possible peptic stricture of the distal esophagus and will have an EGD in AM
-From a CV standpoint recommend ongoing GI work-up for now. Pacemaker placement can be considered if patient continues to have syncope and significant pauses despite corrective measures
-Stable echo noted above
-Arranging for a 7 day CAM monitor to be placed prior to d/c
-Will arrange for outpatient cardiology f/u
Progress Note - Assistant Boys Track Coach
Subjective
Date of Service: September 19, 2023
She passed out with swallowing a pill today and had a 2.2 second pause
Objective
Labs:
09/18/23 07:09
09/19/23 06:29
Labs
Hgb 13.0 g/dL (12.0-16.0) 09/18/23 07:09
Hct 37.8 % (37.0-47.0) 09/18/23 07:09
Plt Count 192 10^3/uL (130-400) 09/18/23 07:09
PT 12.8 Sec (11.4-14.6) 09/16/23 18:00
INR 0.94 09/16/23 18:00
Sodium 140 mmol/L (135-145) 09/19/23 06:29
Potassium 4.1 mmol/L (3.5-5.1) 09/19/23 06:29
BUN 17 mg/dl (7-17) 09/19/23 06:29
Creatinine 0.6 mg/dL (0.6-1.0) 09/19/23 06:29
Glucose 101 mg/dl (70-99) H 09/19/23 06:29
Troponins
09/16/23
18:00
Troponin I < 0.012
Vital Signs and I&O:
Vital Signs
Temp Pulse Resp BP Pulse Ox
98.7 F 67 18 143/76 100
09/19/23 15:00 09/19/23 15:00 09/19/23 15:00 09/19/23 15:00 09/19/23 15:00
Vital Signs
Temp Pulse Resp BP Pulse Ox
98.7 F 67 18 143/76 100
09/19/23 15:00 09/19/23 15:00 09/19/23 15:00 09/19/23 15:00 09/19/23 15:00
Intake & Output
09/17/23 09/18/23 09/19/23 09/20/23
06:59 06:59 06:59 06:59
Intake Total 240 / 240 480 / 480
Balance 240 / 240 480 / 480
Physical Exam
Physical Exam
Gen: NAD. AAO x3
HEENT: EOMI
Heart: Reg
Lungs: CTA B/L
Abdomen: +BS
Extremities: No edema B/L
Neuro: Grossly nonfocal
[2023-09-20] VITALS (7 sets, daily range): BP systolic 118–152; BP diastolic 70–92; PULSE 62–80; BMI 25.1
[2023-09-20] MEDS: MORPHINE SULFATE 2 MG IV (02:54)
[2023-09-20] MEDS: ZOLOFT 50 MG PO (07:37)
[2023-09-20] MEDS: TYLENOL 650 MG PO (08:08)
--- NOTE | 2023-09-20 09:48 | W.PN.HOSP.TC ---
Today's Communication/Plan
-
EGD today
Assessment / Plan
Assessment / Plan
Assessment:
Recurrent syncope, acute on chronic
- concern for deglutition syncope (vasovagal syncope related to swallowing)
- Echo normal
- Tele with bradycardia, pause on 09/19/23 after patient attempted to swallow a pill. Tele otherwise unremarkable independent of swallowing.
- Follow cardiology recs.
- GI following
- Esophagram: Mild to moderate gastroesophageal reflux. Mild, likely peptic stricture of the distal esophagus, and possible associated subtle esophagitis. Delayed passage of a 13 mm barium tablet.
- for EGD today
- if no GI intervention can treat underlying etiology, may need pacemaker to prevent the pauses/syncope.
Nasal Bone Fracture with Headache
- CT imaging in the ED is without acute abnormality in the head or cervical spine.
- Facial bones show minimally depressed fracture of the nasal bone.
- supportive care, cold application, pain control
Swallow Dysfunction - chronic problem
- Patient describes fullness / difficulty swallowing with solids and liquids.
- Esophagram: Mild to moderate gastroesophageal reflux. Mild, likely peptic stricture of the distal esophagus, and possible associated subtle esophagitis. Delayed passage of a 13 mm barium tablet.
- for EGD today
Essentil Hypertension - chronic
- hold Lisinopril
- prn Hydralazine
Anxiety/Depression - Stable.�
- Continue Zoloft.�No recent changes in med/dose/etc.
DVT Prophylaxis:�SCDs
Code Status:�Full
Anticipated Discharge: > 48 hours
Subjective/Interval History
-
Date of Service: September 20, 2023
further 3 sec pause last evening, patient was sleeping
Objective Data
-
Vital Signs:
Vital Signs
Temp Pulse Resp BP Pulse Ox
98.4 F 56 18 118/70 98
09/20/23 07:00 09/20/23 07:00 09/20/23 07:00 09/20/23 07:00 09/20/23 07:00
I&O
09/19/23 09/20/23 09/21/23
06:59 06:59 06:59
Intake Total 480 / 480 1200 / 1200
Balance 480 / 480 1200 / 1200
Physical Exam
-
General: No Apparent Distress
HEENT: Normocephalic and Atraumatic
Respiratory: Negative Wheezes
Cardiac: Regular Rhythm and S1/S2
GI: Soft
Musculoskeletal: No Edema
Neuro: AO x 3
Hematologic / Lymphatic: No Lymphadenopathy
Psych: Calm
Data Reviewed
-
Total Time Spent with Patient (in minutes): 45
Labs: Labs Reviewed by me
--- NOTE | 2023-09-20 11:58 | W.PN.UPDATE ---
Update Note
Progress Note Update
S/P EGD
- LA Grade A (one or more mucosal breaks less than 5 mm, not extending between tops of 2 mucosal folds) esophagitis with no bleeding was found 36 cm from the incisors. Likely sloughing of the mucosa. Biopsies were taken with a cold forceps for
histology.
- Benign-appearing esophageal stenosis.
- Non-obstructing Schatzki ring.
- Z-line regular, 37 cm from the incisors.
- Small hiatal hernia.
- No gross lesions in the entire stomach.
- Normal examined duodenum.
Plan
- Await pathology results.
- Use Protonix (pantoprazole) 40 mg IV daily. Can use Prevacid solutab 30mg po daily as outpatient.
- For now, soft foods.
- Will evaluate with CT chest to evaluate the area of narrowing in the lower esophagus , r/o achalasia.
- Telephone GI clinic for pathology results in 2 weeks.
- Resume previous diet.
- No ibuprofen, naproxen, or other non-steroidal anti-inflammatory drugs for 5 days after biopsy.
- If symptoms continue, then will need esophageal manometry.
[2023-09-20] MEDS: ULTRAM 50 MG PO ×2 (13:10→19:54)
--- NOTE | 2023-09-20 15:37 | CM ---
Had EGD today.
Continues needing pain meds prn.
Pt sleeping on CM rounds.
Continues with Minced and Moist diet.
PLAN Home no anticipated needs
--- NOTE | 2023-09-20 16:58 | W.PN.CARDCBS ---
Addendum entered and electronically signed by Haider Staton MD 09/20/23 17:10:
I saw and examined the patient.
The Head Of Sales And Marketing's note was reviewed and I agree with the note.
Comment:
GEN: No distress, awake, Ox3
HEENT: supple, anicteric, mmm
LUNGS: CTA, no wheezes/rales
CV: Reg, S1/S2, no murmur
ABD: soft, BS+, NT/ND
EXT: No edema
NEURO: Gross non-focal
SKIN: No rash
Plan:
GI workup continues. EGD results noted. Plan for CT scan.
will proceed with Linq in AM
May ultimately need pacemaker
cont tele
Original Note:
Today's Communication / Plan
-
Linq to be placed tomorrow
Impression / Plan
-
PCP: Dr. Bob Laguerre
Cardiology: None prior to admission
Impression:
Syncope, possible deglutition syncope
History of hypertension
Anxiety/depression
History of congenital horseshoe kidney surgery
Echo 09/18/23: EF 57%, no significant valve disease
Plan:
-Patient with a benign appearing esophageal stenosis and a non-obstructing Schatzki ring on EGD 09/20/23.
GI notes reviewed and plan is for CT chest in AM to evaluate area of narrowing in the lower esophagus and look for achalasia.
-From a CV standpoint, continue to recommend ongoing GI work-up. Will arrange for an implantable loop monitor to be placed 09/21/23.
-Pacemaker placement can be considered if patient continues to have syncope and significant pauses despite corrective measures
-Stable echo noted above
-Will arrange for outpatient cardiology f/u
Progress Note - Patient Service Rep
Subjective
Date of Service: September 20, 2023
Patient with a pause while sleeping overnight, no complaints
Objective
Labs:
09/18/23 07:09
09/19/23 06:29
Labs
Hgb 13.0 g/dL (12.0-16.0) 09/18/23 07:09
Hct 37.8 % (37.0-47.0) 09/18/23 07:09
Plt Count 192 10^3/uL (130-400) 09/18/23 07:09
PT 12.8 Sec (11.4-14.6) 09/16/23 18:00
INR 0.94 09/16/23 18:00
Sodium 140 mmol/L (135-145) 09/19/23 06:29
Potassium 4.1 mmol/L (3.5-5.1) 09/19/23 06:29
BUN 17 mg/dl (7-17) 09/19/23 06:29
Creatinine 0.6 mg/dL (0.6-1.0) 09/19/23 06:29
Glucose 101 mg/dl (70-99) H 09/19/23 06:29
Vital Signs and I&O:
Vital Signs
Temp Pulse Resp BP Pulse Ox
98.3 F 64 18 120/76 98
09/20/23 11:00 09/20/23 11:00 09/20/23 11:00 09/20/23 11:00 09/20/23 11:00
Vital Signs
Temp Pulse Resp BP Pulse Ox
98.3 F 64 18 120/76 98
09/20/23 11:00 09/20/23 11:00 09/20/23 11:00 09/20/23 11:00 09/20/23 11:00
Intake & Output
09/18/23 09/19/23 09/20/23 09/21/23
06:59 06:59 06:59 06:59
Intake Total 240 / 240 480 / 480 1200 / 1200
Balance 240 / 240 480 / 480 1200 / 1200
Physical Exam
Physical Exam
Gen: NAD. AAO x3
HEENT: EOMI
Heart: Reg
Lungs: CTA B/L
Abdomen: +BS
Extremities: No edema bilaterally.
Neuro: Grossly nonfocal
[2023-09-21 03:25] VITALS: BP 123/84
[2023-09-21 06:00] VITALS: BMI 25.2
[2023-09-21 07:25] VITALS: BP 112/82
[2023-09-21] MEDS: ZOLOFT 50 MG PO (08:38)
[2023-09-21 09:10] VITALS: BP 115/87; BP 125/88; BP 126/75; PULSE 57; PULSE 67; PULSE 71
--- NOTE | 2023-09-21 09:40 | W.PN.HOSP.TC ---
Today's Communication/Plan
-
LINQ placement with potential DC to follow if cleared by Cards/GI
Assessment / Plan
Assessment / Plan
Assessment:
Recurrent syncope, acute on chronic
- concern for deglutition syncope (vasovagal syncope related to swallowing)
- Echo normal
- Tele with bradycardia, pause on 09/19/23 after patient attempted to swallow a pill. Tele otherwise unremarkable independent of swallowing.
- Cardiology following. LINQ placement today. Possible future pacemaker if events continue.
- GI following
- Esophagram: Mild to moderate gastroesophageal reflux. Mild, likely peptic stricture of the distal esophagus, and possible associated subtle esophagitis. Delayed passage of a 13 mm barium tablet.
- s/p EGD: LA Grade A (one or more mucosal breaks less than 5 mm, not extending between tops of 2 mucosal folds) esophagitis with no bleeding was found 36 cm from the incisors. Likely sloughing of the mucosa.� Biopsies were taken with a cold forceps
for histology. Benign-appearing esophageal stenosis. Non-obstructing Schatzki ring.
- CT chest without evidence of extrinsic compression but did show Mild to moderate dilatation of the esophagus and smooth narrowing at the level of the esophageal junction.
- place on Prevacid SoluTab outpatient and use soft foods
- outpatient GI follow up with Manometry
Nasal Bone Fracture with Headache
- CT imaging in the ED is without acute abnormality in the head or cervical spine.
- Facial bones show minimally depressed fracture of the nasal bone.
- supportive care, cold application, pain control
Swallow Dysfunction - chronic problem
- Patient describes fullness/difficulty swallowing with solids and liquids.
- GI following
- Esophagram: Mild to moderate gastroesophageal reflux. Mild, likely peptic stricture of the distal esophagus, and possible associated subtle esophagitis. Delayed passage of a 13 mm barium tablet.
- s/p EGD: LA Grade A (one or more mucosal breaks less than 5 mm, not extending between tops of 2 mucosal folds) esophagitis with no bleeding was found 36 cm from the incisors. Likely sloughing of the mucosa.� Biopsies were taken with a cold forceps
for histology. Benign-appearing esophageal stenosis. Non-obstructing Schatzki ring.
- CT chest without evidence of extrinsic compression but did show Mild to moderate dilatation of the esophagus and smooth narrowing at the level of the esophageal junction.
- place on Prevacid SoluTab outpatient and use soft foods
- outpatient GI follow up with Manometry
Essential Hypertension - chronic
- hold Lisinopril
- prn Hydralazine
Anxiety/Depression - Stable.�
- Continue Zoloft.�No recent changes in med/dose/etc.
DVT Prophylaxis:�SCDs
Code Status:�Full
Anticipated Discharge: Within 24 hours
Subjective/Interval History
-
Date of Service: September 21, 2023
feels well today no complaints
Objective Data
-
Vital Signs:
Vital Signs
Temp Pulse Resp BP Pulse Ox
98.0 F 67 18 112/82 95
09/21/23 07:25 09/21/23 07:25 09/21/23 07:25 09/21/23 07:25 09/21/23 07:25
I&O
09/20/23 09/21/23 09/22/23
06:59 06:59 06:59
Intake Total 1200 / 1200 1440 / 1440
Balance 1200 / 1200 1440 / 1440
Physical Exam
-
General: No Apparent Distress
HEENT: Normocephalic and Atraumatic
Respiratory: Negative Wheezes or Rales
Cardiac: Regular Rhythm and S1/S2
GI: Soft
Genito-urinary: No Costovertebral Tender
Neuro: AO x 3
Hematologic / Lymphatic: No Lymphadenopathy
Psych: Calm
Data Reviewed
-
Total Time Spent with Patient (in minutes): 45
Labs: Labs Reviewed by me
[2023-09-21] MEDS: PREVACID 30 MG PO (10:47)
--- NOTE | 2023-09-21 10:52 | CM ---
Patient seen resting in beds, denies any needs at this time. CM will continue to follow for discharge planning needs.
Plan; home no needs.
[2023-09-21 11:24] VITALS: BP 137/86
[2023-09-21 11:30] VITALS: BP 123/83; BP 148/89; PULSE 67; O2SAT 94
--- NOTE | 2023-09-21 13:58 | W.DS.TRANS ---
DC Summary - Air Conditioning Mechanic Industrial
-
Discharge Instructions:
Discharge Diagnosis/Procedures deglutition syncope with possible achalasia (
esophageal dilatation), bradycardia with periods
of small pauses from the syncope.
Additional Diets soft and bite sized foods. use straws. eat slow,
chew throughly
Activity No restrictions
Bathing Restrictions After dressing removed
Stop these medications: Lisinopril
Instructions:
Stand-Alone Forms: DC Inst - Implanted Device
Changes to Home Medications: Yes
Discharge Medications:
DC Medications w/original date entered in [facility]
sertraline 50 mg tablet (Zoloft) 50 mg PO DAILY Depression 09/16/23
acetaminophen 325 mg tablet 650 mg PO Q4HPRN PRN Mild Pain / Temp > 101 #100 tabs 09/21/23
lansoprazole 30 mg delayed release,disintegrating tablet 30 mg PO DAILY #30 tabs 09/21/23
Home Medication Changes
MARISELA stopped
Pending Results: No
Total time spent discharging patient (in min): 41
--- NOTE | 2023-09-21 15:02 | ITS.CL.IMPLP ---
Key Account Executive - Implant Loop
Implant Loop
Procedure Report:
ILR implant
Date of Procedure: September 21, 2023
Patient : 1970
Procedure: Insertable Loop Recorder implant
Indication: Sinus pauses as well as glutition syncope
Implant: Reveal Linq: [employer]; Model# LN Q11; Serial# [id number]
Technique: The patient was prepped and draped in the usual fashion. Local anesthetic was applied to the left prepectoral subcutaneous tissue. A subcutaneous pocket was created with blunt dissection. Hemostasis was excellent. The pocket was
irrigated with antibiotic solution. The device was placed in the pocket. The skin was closed with steri-strips. The estimated blood loss was minimal. There were no complications.
Final Programming: FVT 231 30/40 beats
VT 176 16 beats
Asystole 3 sec
Severo 30 bpm for 4 beats
AF On AF only.
Conclusion: Uncomplicated insertable loop implant.
Recommendation: Routine Reveal care. The patient I did discuss pacemaker implantation in detail and that that this was a possibility over the next few months. I did describe pacemaker implantation in detail as well as the risk benefits and
treatment alternatives. As some of her inpatient pauses were observed and not associated with syncope we would like to look for longer pauses or correlation with her outpatient syncope as noted. Patient understands and agrees to proceed with ILR
implant as above.
cc: Dr. David Staton
[2023-09-21 15:40] VITALS: BP 149/89
== END 2023-09-21 16:01 | disposition home or self-care (01) | DRG 262 ==
LOC: 4 WEST ACU 03:15
PROVIDERS: Emergency Medicine; Internal Medicine; Internal Medicine Cardiovascular Disease; Internal Medicine Gastroenterology; ADMITTING PHYSICIAN Hospitalist; ATTENDING PHYSICIAN Internal Medicine; CONSULT PHYSICIAN Internal Medicine Cardiovascular Disease; CONSULT PHYSICIAN Internal Medicine Gastroenterology; EMERGENCY PHYSICIAN Emergency Medicine; FAMILY PHYSICIAN Family Medicine
PROC: 0DB58ZX Excision of Esophagus, Via Natural or Artificial Opening Endoscopic, Diagnostic (ICD-10-PCS; 2023-09-20)
PROC: 0JH632Z Insertion of Monitoring Device into Chest Subcutaneous Tissue and Fascia, Percutaneous Approach (ICD-10-PCS; 2023-09-21)
DX: R55 Syncope and collapse (principal); F32.A Depression, unspecified; F41.9 Anxiety disorder, unspecified; S02.2XXA Fracture of nasal bones, initial encounter for closed fracture; I10 Essential (primary) hypertension; Q63.1 Lobulated, fused and horseshoe kidney; W06.XXXA Fall from bed, initial encounter; K22.0 Achalasia of cardia; R00.1 Bradycardia, unspecified; K21.00 Gastro-esophageal reflux disease with esophagitis, without bleeding; K22.2 Esophageal obstruction; K44.9 Diaphragmatic hernia without obstruction or gangrene
CPT/HCPCS: 88305; 33285; 70450; 70486; 71260; 72125; 74221; 80048; 83735; 84443; 84484; 85025; 85027; 85379; 85610; 92523; 93005; 93306; 96361; 96374; 97116; 97161; 99285; C1764; Q9967

== ENCOUNTER → 2024-06-18 08:21 | Outpatient (REF) | payer OTHER, SELFPAY ==
[2024-06-18 09:40] LABS: % Basophils 0.9 % (0-2); % Eosinophils 3.7 % (0-6); % Immature Granulocytes 0.5 % (0-0.5); % Monocytes 9.4 % (1.7-9.3); % Neutrophils 39.5 % (42.2-75.2); Absolute Eosinophils 0.2 10^3/uL (0-0.7); Absolute Monocytes 0.4 10^3/uL (0.1-0.6); Absolute Neutrophils 1.7 10^3/uL (1.4-6.5); Hematocrit 38.3 % (37.0-47.0); Hemoglobin 13.3 g/dL (12.0-16.0); Mean Corp Hgb Conc. 34.7 g/dL (33.0-37.0); Mean Corpuscular Hgb 30.2 pg (27.0-31.0); Mean Corpuscular Volume 86.8 fL (81.0-99.0); Mean Platelet Volume 10.3 fL (7.4-10.4); Nucleated Red Blood Cells % 0 %; Platelet Count 211 10^3/uL (130-400); Red Blood Cell Count 4.41 10^6/uL (4.20-5.40); Red Cell Dist. Width 13.2 % (11.5-14.5); White Blood Cell Count 4.4 10^3/uL (4.8-10.8)
[2024-06-18 10:15] LABS: Blood Urea Nitrogen 18 mg/dl (7-17); Calcium 9.6 mg/dl (8.4-10.2); Carbon Dioxide 27 mmol/L (22-30); Chloride 107 mmol/L (98-107); Glucose 116 mg/dl (70-99); Potassium 4.7 mmol/L (3.5-5.1); Sodium 144 mmol/L (135-145); eGFR > 60.00
[2024-06-18 10:46] LABS: TSH 1.52 uIU/ml (0.47-4.68)
== END ==
LOC: REG 08:21
PROVIDERS: ATTENDING PHYSICIAN Nurse Practitioner
DX: R00.1 Bradycardia, unspecified (principal)
CPT/HCPCS: 36415; 80048; 84443; 85025

== ENCOUNTER 2024-06-20 09:59 | Day surgery (SDC) | payer OTHER, SELFPAY ==
[2024-06-20] VITALS (9 sets, daily range): BP systolic 132–157; BP diastolic 89–109; BMI 26.0
--- NOTE | 2024-06-20 15:27 | ITS.CL.PACE ---
Flue Dust Laborer - Pacemaker Implant
Pacemaker Implant
Procedure Report:
PACEMAKER IMPLANT REPORT
Primary title abstractor: Initially seen by Cardiology during admission 09/17/23.
Date of Procedure: 06/20/24
Procedure:
Implantation of dual-chamber permanent pacemaker utilizing the left bundle branch for conduction system pacing
Indication/Diagnosis:
Non-reversible symptomatic bradycardia due to sinus node dysfunction.
HISTORY:
Previously implanted loop recorder has demonstrated symptomatic sick sinus syndrome with pauses of up to 8 seconds.
She has now been referred for
- implantation of permanent pacemaker
- removal of the implanted loop recorder.
After informed consent was obtained, 'time out' was called and confirmed, the patient was prepped and draped in a sterile fashion. Lidocaine with epi was used for local anesthesia. Central venous access was obtained via subclavian venipuncture. An
incision was made along the left chest and a pre-pectoral pocket was formed. Using a Seldinger technique and peel-away sheaths, the pacing leads were placed under fluoroscopic guidance.
Fluoroscopy was used to determine likely anatomic site for left bundle branch pacing. The Medtronic C315 sheath was used to deliver the Medtronic 3830 Selectsecure pacing lead with the helix exposed just exposed from the sheath tip during continuous
monitoring when pacemapping the septum during gentle clockwise rotation to obtain a paced QRS morphology of a W pattern in lead V1. Once the suspected optimal site was identified, lead deployment was performed with several rapid rotations as paced
QRS morphology was intermittently monitored until a paced QRS complex in lead V1 demonstrated development of an R wave (Qr).
Unipolar pacing impedance dropped by approximately 100 ohms suggesting it had reached the left ventricular subendocardial.
Stable VEgm injury current is present throughout final lead position including at end of case, suggesting there was no perforation through the septum into the LV cavity.
Final unipolar pacing impedance is 800 Ohms
Unipolar pacing threshold is stable at 1 V @ 0.4 ms.
Final conduction system paced QRS complex duration is 103 ms
LVAT is 50 ms and peak V5 -> peak V1 timing is 42 ms
Right atrial lead was placed at the RAA.
Once testing (see below) showed adequate and stable function, the leads were secured using the suture sleeves. The pocket was liberally irrigated with antibiotic solution. The leads were connected to the generator header and the leads and
generator were placed within the pocket. Fluoroscopy confirmed stable lead position. The pocket was closed in the typical fashion.
Fluoroscopy was used to guide lead placement and assess stability at the end of the case.
IMPLANTS:
Medtronic [id number], SN: [id number], Left Pectoral
RA: Medtronic 5076-45, SN: [id number], RAA
RV: Medtronic 3830 , SN:[id number], Interventricular septum at LBB
DEVICE TESTING:
Sensing: RA 3.6 mV, RV 7.5 mV (bipolar)
Capture: RA 0.75 V@0.4ms, RV 0.5 V@0.4ms (bipolar)
Ohms: RA 437, RV 722 (bipolar)
FINAL PROGRAMMING
Severo Pacing: AAIR+ 60-130 ppm
COMPLICATIONS:
None
CONCLUSIONS:
1: Successful implant of dual chamber permanent pacemaker utilizing Left Bundle Branch conduction system capture for pacing.
RECOMMENDATIONS:
1. Post-op care (tele, CXR, IV abx)
2. In-Office wound check in 5-7 days
--- NOTE | 2024-06-20 15:38 | ITS.CL.IMPLP ---
Road Marker - Implant Loop
Implant Loop
Procedure Report:
LINQ IMPLANTED MONITOR REMOVAL
Date of Procedure: 06/20/24
PROCEDURES:
1. Removal of implanted loop recorder
INDICATION FOR PROCEDURE:
Diagnosis for syncope and near syncope has been made using this device. Device is no longer needed.
SEDATION: Via the anesthesia department with conscious sedation
Patient is prepped and draped in a sterile manner. Lidocaine with epi was used for local anesthesia. An incision was made along the prior incision and the Linq monitor was carefully dissected from the pocket. The pocket was liberally irrigated
with antibiotic solution. The pocket was closed in the typical fashion.
COMPLICATIONS:
None
CONCLUSIONS:
Removal of implanted loop recorder.
RECOMMENDATIONS:
Office follow-up with primary data conversion developer.
[2024-06-20] MEDS: TYLENOL 650 MG PO (16:38)
[2024-06-20] MEDS: ULTRAM 50 MG PO (19:28)
[2024-06-20] MEDS: ANCEF 5 IV (20:44)
[2024-06-20] MEDS: XANAX 0.5 MG PO (23:37)
--- NOTE | 2024-06-21 00:49 | PTCARENOTE ---
Received patient at change of shift. SR on the monitor, HR in the 70s. L chest dressing CDI, no evidence of hematoma. L arm immobilizer in place. Pt complained of 8/10 pain at PPM site, pain medication administered as per OCT. Pt verbalizes
understanding of activity restrictions. Call yoder within reach.
[2024-06-21 04:54] VITALS: BP 138/97
[2024-06-21] MEDS: ANCEF 5 IV (05:06)
[2024-06-21 05:43] LABS: Hematocrit 37.3 % (37.0-47.0); Hemoglobin 12.9 g/dL (12.0-16.0); Mean Corp Hgb Conc. 34.6 g/dL (33.0-37.0); Mean Corpuscular Hgb 30.6 pg (27.0-31.0); Mean Corpuscular Volume 88.6 fL (81.0-99.0); Mean Platelet Volume 10.1 fL (7.4-10.4); Platelet Count 182 10^3/uL (130-400); Red Blood Cell Count 4.21 10^6/uL (4.20-5.40); Red Cell Dist. Width 13.1 % (11.5-14.5); White Blood Cell Count 5.3 10^3/uL (4.8-10.8)
[2024-06-21 06:04] LABS: Blood Urea Nitrogen 16 mg/dl (7-17); Calcium 9.2 mg/dl (8.4-10.2); Carbon Dioxide 24 mmol/L (22-30); Chloride 106 mmol/L (98-107); Estimated Creatinine Clearance 86 ml/min; Glucose 95 mg/dl (70-99); Potassium 4.3 mmol/L (3.5-5.1); Sodium 141 mmol/L (135-145); eGFR > 60.00
--- NOTE | 2024-06-21 08:41 | W.PN.CARDCBS ---
Addendum entered and electronically signed by VALERIE Guzmán 06/21/24 11:20:
Pt had good relief with Percocet this am, we will give #5 tabs for POD 1-2 then recommend using tylenol as needed for pain.
Addendum entered and electronically signed by John Morris DO 06/21/24 11:10:
I saw and examined the patient.
The Design Maker's note was reviewed and I agree with the note.
Comment:
Patient resting comfortably overnight. Patient noting mild discomfort at left-sided chest site. Telemetry demonstrates sinus rhythm, a paced V sensed. Chest x-ray no pneumothorax.
GENERAL: no acute distress
EYE: sclera anicteric
NECK: Supple, no JVD, no carotid bruit appreciated
ENT: normal nose, moist mucosal membranes
CARDIAC: Regular rate and rhythm, +S1/S2, no murmur, rubs, or gallops; L CIED site dressing intact; c/d/i; scant blood old drainage in Aquacel; mild tenderness at site
CHEST/PULMONARY: Normal effort, clear breath sounds
ABDOMEN: Soft, without focal tenderness or distention
NEUROLOGICAL: Alert and oriented x3
SKIN: Warm and dry, no rash
PSYCH: Normal and appropriate interaction.
Patient stable from device standpoint.
Follow-up in office for incision check as scheduled
Restrictions reviewed
Stable for DC
Original Note:
Today's Communication / Plan
-
stable for d/c home
Impression / Plan
-
PCP: Frankie Campbell DO
CDY: Kelvin Vieira MD
Impression:
Symptomatic bradycardia with pauses
post DC PPM and loop explant 06/20/24
Loop recorder implant 08/2023
Anxiety
Plan:
post device site stable with scant old drainage
loop site c/d/i
Moderate pain at site, will give Percocet x2 now
tele Apaced
CXR no PTX, leads in good position
Activity restrictions reviewed
inc check 1 week DCA
stable for d/c home
Progress Note - Log Skidder
Subjective
Date of Service: June 21, 2024
mod incisional pain, no sob
Objective
Labs:
06/21/24 05:01
06/21/24 05:01
Labs
Hgb 12.9 g/dL (12.0-16.0) 06/21/24 05:01
Hct 37.3 % (37.0-47.0) 06/21/24 05:01
Plt Count 182 10^3/uL (130-400) 06/21/24 05:01
Sodium 141 mmol/L (135-145) 06/21/24 05:01
Potassium 4.3 mmol/L (3.5-5.1) 06/21/24 05:01
BUN 16 mg/dl (7-17) 06/21/24 05:01
Creatinine 0.6 mg/dL (0.6-1.0) 06/21/24 05:01
Glucose 95 mg/dl (70-99) 06/21/24 05:01
Vital Signs and I&O:
Vital Signs
Temp Pulse Resp BP Pulse Ox
98.2 F 66 18 138/97 98
06/21/24 04:54 06/21/24 05:15 06/21/24 04:54 06/21/24 04:54 06/21/24 04:54
Vital Signs
Temp Pulse Resp BP Pulse Ox
98.2 F 66 18 138/97 98
06/21/24 04:54 06/21/24 05:15 06/21/24 04:54 06/21/24 04:54 06/21/24 04:54
Physical Exam
Physical Exam
NAD, AOX3
S1, S2, RRR
CTAB< non labored, no wheeze
SNTND Bsx4
L CW dressing scant, marked old drainage, no HT
Loop site dressing removed, steri strip intact
[2024-06-21 09:03] VITALS: BP 148/93
--- NOTE | 2024-06-21 09:09 | CM ---
Reviewed chart. Met with Mrs. Clifton to review discharge plans. She states prior to admission she resides alone in a two story home with a ramp to enter. She states she has to go up a full flight of steps to get to bedroom/full bathroom. She
state she has a powder room on the first floor. She states prior to admission she was independent with ambulation and adls. She states she does not have any DME in the home. She states she has a prescription plan and uses [facility]. The
discharge plan is to return home when medically stable.
[2024-06-21] MEDS: PERCOCET 5/325 2 TABLET PO (09:10)
--- NOTE | 2024-06-21 11:02 | PTCARENOTE ---
Pt c/o pain at incision site, rated 8/10. Med with Percocet 2 tabs as ordered with relief noted
--- NOTE | 2024-06-21 11:25 | W.DS.TRANS ---
DC Summary - Proposal Manager
-
Discharge Instructions:
Discharge Diagnosis/Procedures Pacemaker implant and Loop explant
Diet Regular
Driving Restrictions No driving for 1 week
Bathing Restrictions OK to Shower
Instructions:
Stand-Alone Forms: DC Inst - Implanted Device
Changes to Home Medications: No
Discharge Medications:
DC Medications w/original date entered in [employer]
acetaminophen 325 mg tablet 650 mg (2 x 325 mg) PO Q4HPRN PRN Mild Pain / Temp > 101 #100 tabs 09/21/23
alprazolam 0.5 mg tablet (Xanax) 0.5 mg PO DAILY PRN anxiety 06/20/24
gabapentin 300 mg capsule 300 mg PO BID PRN nerve spasm 06/20/24
Home Medication Changes
Pending Results: No
== END 2024-06-21 11:40 | disposition home or self-care (01) ==
LOC: CATH 09:59
PROVIDERS: Nurse Practitioner Adult Health; ATTENDING PHYSICIAN Internal Medicine Cardiovascular Disease; OTHER PHYSICIAN Internal Medicine Cardiovascular Disease
DX: I49.5 Sick sinus syndrome (principal); Z09 Encounter for follow-up examination after completed treatment for conditions other than malignant neoplasm; F41.9 Anxiety disorder, unspecified; R42 Dizziness and giddiness; R55 Syncope and collapse; Z79.899 Other long term (current) drug therapy
CPT/HCPCS: 33208; 33286; 33249; 71045; 80048; 83735; 85027; 93005; C1769; C1785; C1887; C1892; C1898; Q9967

== ENCOUNTER 2024-09-24 15:15 | Emergency (ER) | payer OTHER, SELFPAY ==
[2024-09-24 15:30] VITALS: BP 115/90
--- NOTE | 2024-09-24 15:36 | ED.GENMED ---
ED Provider Triage
<Dillon Almaraz PA-C - Last Filed: 09/24/24 15:37>
-
Patient seen by provider in Triage?: Seen in Triage
Attestation: A medical screening examination has been initiated by a qualified medical provider. Based on the assessment performed at this time, it has been determined that an emergent medical condition may exist and the patient has been informed
that further medical evaluation and possible additional diagnostic testing may be needed.
HPI: 54-year-old female presents for evaluation of chest discomfort. She is been concerned about ongoing high blood pressure for the past 2 weeks and intended to call her research staff member over the advise ED evaluation due to chest pain. She received
sublingual nitroglycerin and aspirin prehospital and reports marked improvement in symptoms. Does have a history of heart block with pacemaker, [employer]tronic, device will be interrogated in triage
GENERAL: Alert , in no apparent distress
EYE: No visual abnormalities.
NECK: Trachea midline
ENT: No visible abnormalities.
LUNGS: No acute respiratory distress
NEUROLOGICAL: Alert and oriented
SKIN: Skin intact. No visible changes.
MUSCULOSKELETAL: Moving extremities normally
PSYCH: Normal and appropriate interaction.
This is a medical evaluation conducted in person to initiate diagnostic evaluation and provide initial therapeutics. Please see further documentation by the treating clinician.
History of Present Illness
<Dillon Almaraz PA-C - Last Filed: 09/24/24 15:37>
General
Chief Complaint: Blood Pressure Problem
Time Seen by Provider: 09/24/24 17:17
<Andrzej Lambert PA-C - Last Filed: 09/24/24 18:28>
General
Source: patient
History of Present Illness
History of Present Illness:
54-year-old female with past medical history of pacemaker placement this past July due to multiple syncopal episodes presenting to the ER via EMS after she had been experiencing elevated blood pressure over the last 2 weeks accompanied with
intermittent chest discomfort and lightheadedness, today attempted to make an appointment with her research staff member but was unable to be seen until , became acutely lightheaded while on the phone with cardiology office and was recommended to
come to the ER for further evaluation. Patient was given 1 nitroglycerin and aspirin 324 mg and reports that shortly after receiving these medication she felt better which EMS also states coincided with patient's blood pressure going down patient
notes that her blood pressure systolically have ranged from anywhere between 160-200 and diastolically from 90 to as high as 120 on arrival to the ER here patient's blood pressure is 115/90 and she is asymptomatic, at time of my exam patient's blood
pressure was 155/92. Patient is not on any medications presently for blood pressure. Denies any other symptoms.
Past History
<Andrzej Lambert PA-C - Last Filed: 09/24/24 18:28>
Past History
ED Past Medical History: Other (Recurring syncope/sick sinus syndrome)
ED Past Surgical History: Cardiac (Pacemaker placement-Medtronic)
Social History
Tobacco: Non-smoker
Alcohol: None
Drug: Marijuana
Personal:
Living: alone
Review of Systems
<Andrzej Lambert PA-C - Last Filed: 09/24/24 18:28>
Review of Systems
All Other Systems: ROS reviewed and negative except as documented in HPI and ROS
Phy Exam
<Andrzej Lambert PA-C - Last Filed: 09/24/24 18:28>
Physical Exam
Physical Exam:
GENERAL: Alert , in no apparent distress
EYE: clear conjunctiva b/l
HEAD: NCAT
ENT: o/p clr, mmm.
CARDIAC: Regular rate and rhythm, no murmur.
LUNGS: Clear breath sounds bilaterally, no acute respiratory distress, no wheezes/rales/rhonchi
ABDOMEN: Soft, without focal tenderness, no r/g, no cvat
NEUROLOGICAL: Alert and oriented
SKIN: Warm and dry, skin intact.
MUSCULOSKELETAL: No edema, well perfused.
PSYCH: Normal and appropriate interaction.
Scores
<Andrzej Lambert PA-C - Last Filed: 09/24/24 18:28>
Heart Failure Risk
Heart Failure Risk Score: Not Applicable
Heart Score for Chest Pain Patients
STEMI patient?: Not applicable
Withdrawal Assessment of Alcohol
Withdrawal Assessment Completed?: Not applicable
Course
<Dillon Almaraz PA-C - Last Filed: 09/24/24 15:37>
Orders/Labs/Results
Orders:
Orders
09/24/24 15:18
Electrocardiogram (*1) Urgent
Reason for Study: Chest Pain
EKG- Treatment ONCE
09/24/24 15:36
CR Chest - 2 Views Urgent
Comment:
Reason For Exam: chest pain/lightheaded
09/24/24 15:46
Complete Blood Count/With Diff Urgent
Comprehensive Metabolic Panel Urgent
Troponin I Urgent
09/24/24 17:52
Amlodipine [Norvasc] 5 mg PO NOW STA
Abnormal Lab Results
09/24/24
15:46
RBC 4.14 L 10^6/uL
(4.20-5.40)
BUN 23 H mg/dl
(7-17)
Creatinine 0.5 L mg/dL
(0.6-1.0)
09/24/24 15:46
09/24/24 15:46
Vital Signs
Initial and Last Documented VS:
Initial Vital Signs
Temp Pulse Resp BP Pulse Ox
98.6 F 69 16 115/90 97
09/24/24 15:30 09/24/24 15:30 09/24/24 15:30 09/24/24 15:30 09/24/24 15:30
Last Documented Vital Signs
Temp Pulse Resp BP Pulse Ox
98.6 F 62 20 148/96 98
09/24/24 15:30 09/24/24 17:45 09/24/24 17:45 09/24/24 17:57 09/24/24 17:45
<Andrzej Lambert PA-C - Last Filed: 09/24/24 18:28>
Orders/Labs/Results
Orders:
Orders
09/24/24 15:18
Electrocardiogram (*1) Urgent
Reason for Study: Chest Pain
EKG- Treatment ONCE
09/24/24 15:36
CR Chest - 2 Views Urgent
Comment:
Reason For Exam: chest pain/lightheaded
09/24/24 15:46
Complete Blood Count/With Diff Urgent
Comprehensive Metabolic Panel Urgent
Troponin I Urgent
09/24/24 17:52
Amlodipine [Norvasc] 5 mg PO NOW STA
Abnormal Lab Results
09/24/24
15:46
RBC 4.14 L 10^6/uL
(4.20-5.40)
BUN 23 H mg/dl
(7-17)
Creatinine 0.5 L mg/dL
(0.6-1.0)
09/24/24 15:46
09/24/24 15:46
Vital Signs
Initial and Last Documented VS:
Initial Vital Signs
Temp Pulse Resp BP Pulse Ox
98.6 F 69 16 115/90 97
09/24/24 15:30 09/24/24 15:30 09/24/24 15:30 09/24/24 15:30 09/24/24 15:30
Last Documented Vital Signs
Temp Pulse Resp BP Pulse Ox
98.6 F 62 20 148/96 98
09/24/24 15:30 09/24/24 17:45 09/24/24 17:45 09/24/24 17:57 09/24/24 17:45
<Andrzej Lambert PA-C - Last Filed: 09/24/24 18:28>
MDM/Problems Addressed
Differential Diagnosis Includes:
Hypertensive urgency/emergency, ACS, renal dysfunction, electrolyte derangement, underlying undiagnosed hypertension, anxiety
MDM/Problems Addressed:
54-year-old female presenting to the ER for evaluation of waxing and waning episodes of elevated blood pressure, today became acutely symptomatic while in the phone with cardiology office and was recommended to come to the ER for further evaluation.
Patient notes her systolic blood pressure at the around the 180 and diastolic around 110. Received nitroglycerin and aspirin via EMS and reported symptomatic improvement. She is asymptomatic here in the ER. Multiple blood pressures taken and
while still mildly elevated, improved from reported blood pressures at home. Labs unremarkable, EKG shows paced rhythm and pacemaker interrogation does not show any underlying abnormalities. Will consult with cardiology to determine if they would
like us to initiate patient on antihypertensive regimen. Patient already has appointment scheduled for this coming morning.
<Andrzej Lambert PA-C - Last Filed: 09/24/24 18:28>
*Radiology
Radiology exam reviewed: radiology read reviewed (Patient without fevers, cough or symptoms suggestive of pneumonia)
*Pulse Oximetry
Patient hypoxic: no
*EKG
Comparison EKG: no changes
Heart Rate: 66
Rate: normal
Rhythm: sinus
Ischemia: no ischemia
*Hazardous Substances Scientist Interpretation
Rate: normal
Rhythm: av sequential
*Critical Care Note
Total Time (30-74mins, 75-104mins- exclusive of procedures): Not Applicable
<Andrzej Lambert PA-C - Last Filed: 09/24/24 18:28>
Patient Management
Discussion with other providers: Clerk Guide
Escalation/DeEscalation of care consider admission/obs:
Spoke with cardiology who is okay with us starting 5mg amlodipine tabs daily. Patient will follow up with cardiology as scheduled
ED Attending Note
<Dillon Almaraz PA-C - Last Filed: 09/24/24 15:37>
-
Portions of this chart may have been created with voice recognition software.� Occasional wrong word or��sound alike� substitutions may have occurred due to the inherent limitations of voice recognition software.
Discharge Plan
Departure
Patient Disposition: Home (Routine Discharge)
Date of Disposition: 09/24/24
Time of Disposition: 17:45
Patient with high blood pressure during this ER visit?: Yes
Discharge Problem:
Hypertension
Instructions: High Blood Pressure (DC)
Prescriptions:
New
amlodipine 5 mg tablet
5 mg PO DAILY Qty: 30 0RF
No Action
acetaminophen 325 mg Tablet
650 mg PO Q4HPRN PRN (Reason: Mild Pain / Temp > 101) Qty: 100 0RF
alprazolam [Xanax] 0.5 mg Tablet
0.5 mg PO DAILY PRN (Reason: anxiety)
gabapentin 300 mg Capsule
300 mg PO BID PRN (Reason: nerve spasm)
Referrals:
Aby Sarabia CRNP [Family Provider] -
Interventions
Interventions:
*Risk Screen - Suicide Last Done: 09/24/24 15:34
*General Assessment Last Done: 09/24/24 15:34
*Neglect/Abuse Screening Last Done: 09/24/24 17:27
*ED COVID-19 Vaccine History Last Done: 09/24/24 17:27
*Nursing Disposition Last Done: 09/24/24 18:06
ED- Cardiac Assessment Last Done: 09/24/24 17:27
ED- Neurological Assessment Last Done: 09/24/24 17:27
ED- Pulmonary Assessment Last Done: 09/24/24 17:27
Discharge Date and Time
Discharge Date/Time: 09/24/24 18:06
Print Language: LUX[place]
[2024-09-24 16:16] LABS: % Basophils 0.7 % (0-2); % Eosinophils 1.5 % (0-6); % Immature Granulocytes 0.4 % (0-0.5); % Lymphocytes 33.2 % (20.5-51.1); % Monocytes 7.5 % (1.7-9.3); % Neutrophils 56.7 % (42.2-75.2); Absolute Basophils 0.1 10^3/uL (0-0.2); Absolute Eosinophils 0.1 10^3/uL (0-0.7); Absolute Lymphocytes 2.5 10^3/uL (1.2-3.4); Absolute Monocytes 0.6 10^3/uL (0.1-0.6); Absolute Neutrophils 4.2 10^3/uL (1.4-6.5); Hematocrit 37.2 % (37.0-47.0); Hemoglobin 12.5 g/dL (12.0-16.0); Mean Corp Hgb Conc. 33.6 g/dL (33.0-37.0); Mean Corpuscular Hgb 30.2 pg (27.0-31.0); Mean Corpuscular Volume 89.9 fL (81.0-99.0); Nucleated Red Blood Cells % 0 %; Platelet Count 176 10^3/uL (130-400); Red Blood Cell Count 4.14 10^6/uL (4.20-5.40); Red Cell Dist. Width 13.1 % (11.5-14.5); White Blood Cell Count 7.4 10^3/uL (4.8-10.8)
[2024-09-24 16:33] LABS: ALT (SGPT) 13 U/L (0-35); AST (SGOT) 20 U/L (14-36); Albumin 4.7 g/dl (3.5-5.0); Alkaline Phosphatase 48 U/L (38-126); Blood Urea Nitrogen 23 mg/dl (7-17); Calcium 8.8 mg/dl (8.4-10.2); Carbon Dioxide 23 mmol/L (22-30); Chloride 106 mmol/L (98-107); Glucose 89 mg/dl (70-99); Potassium 4.2 mmol/L (3.5-5.1); Sodium 138 mmol/L (135-145); Total Bilirubin 0.4 mg/dl (0.2-1.3); Total Protein 7.3 g/dl (6.3-8.2); eGFR > 60.00
[2024-09-24 16:38] LABS: Troponin I < 0.012 ng/ml
[2024-09-24 17:22] VITALS: BP 155/92
[2024-09-24 17:40] VITALS: BP 148/96
[2024-09-24] MEDS: NORVASC 5 MG PO (17:57)
== END 2024-09-24 18:06 | disposition home or self-care (01) ==
LOC: EMR 15:15
PROVIDERS: Physician Assistant; EMERGENCY PHYSICIAN Student in an Organized Health Care Education/Training Program; FAMILY PHYSICIAN Nurse Practitioner
DX: I10 Essential (primary) hypertension (principal); Z95.0 Presence of cardiac pacemaker
CPT/HCPCS: 99285; 71046; 80053; 84484; 85025; 93005

== ENCOUNTER 2024-11-23 09:53 | Emergency (ER) | payer OTHER, SELFPAY ==
[2024-11-23] VITALS (9 sets, daily range): BP systolic 113–142; BP diastolic 75–97; BMI 23.3
[2024-11-23 11:28] LABS: % Basophils 0.6 % (0-2); % Eosinophils 1.2 % (0-6); % Immature Granulocytes 0.2 % (0-0.5); % Monocytes 7.2 % (1.7-9.3); % Neutrophils 52.8 % (42.2-75.2); Absolute Eosinophils 0.1 10^3/uL (0-0.7); Absolute Lymphocytes 1.9 10^3/uL (1.2-3.4); Absolute Monocytes 0.4 10^3/uL (0.1-0.6); Absolute Neutrophils 2.7 10^3/uL (1.4-6.5); Hematocrit 40.6 % (37.0-47.0); Hemoglobin 13.7 g/dL (12.0-16.0); Mean Corp Hgb Conc. 33.7 g/dL (33.0-37.0); Mean Platelet Volume 9.7 fL (7.4-10.4); Nucleated Red Blood Cells % 0 %; Platelet Count 185 10^3/uL (130-400); Red Blood Cell Count 4.56 10^6/uL (4.20-5.40)
[2024-11-23 11:33] LABS: ALT (SGPT) 16 U/L (0-35); AST (SGOT) 18 U/L (14-36); Albumin 4.9 g/dl (3.5-5.0); Alkaline Phosphatase 55 U/L (38-126); Blood Urea Nitrogen 20 mg/dl (7-17); Carbon Dioxide 28 mmol/L (22-30); Chloride 108 mmol/L (98-107); Glucose 113 mg/dl (70-99); Potassium 3.8 mmol/L (3.5-5.1); Sodium 143 mmol/L (135-145); Total Bilirubin 0.5 mg/dl (0.2-1.3); Total Protein 7.2 g/dl (6.3-8.2); eGFR > 60.00
[2024-11-23 11:45] LABS: Troponin I < 0.012 ng/ml
--- NOTE | 2024-11-23 12:43 | ED.GENMED ---
History of Present Illness
General
Chief Complaint: Chest Pain
Source: patient
Exam Limitations: none
Time Seen by Provider: 11/23/24 11:03
Nursing documentation reviewed up to this point in time: agreed with
History of Present Illness
History of Present Illness:
Patient is a 54-year-old female past medical history of hypertension sick sinus syndrome status post dual-chamber permanent pacemaker May 2024 presents to the ER for evaluation. She has had discomfort to the left side of her chest for the past
several weeks. She reports it is mostly constant but is mostly worse when she moves and touches the area. She denies pain with deep breath. She does feel short of breath. She denies any injury. She denies any palpitations lightheadedness
dizziness
Past History
Past History
ED Past Medical History: Other (Recurring syncope/sick sinus syndrome)
ED Past Surgical History: Cardiac (Pacemaker placement-[employer])
Social History
Tobacco: Non-smoker
Alcohol: None
Drug: Marijuana
Personal:
Living: alone
Review of Systems
Review of Systems
Allergies reviewed?: Yes
All Other Systems: ROS reviewed and negative except as documented in HPI and ROS
Constitutional: Reports no symptoms; Denies fever, fatigue or chills
EENT: Reports no symptoms
Respiratory: Reports trouble breathing; Denies cough
Cardiac: Reports chest pain (left sided chest sorness )
ABD/GI: Reports no symptoms
: Reports no symptoms
Musculoskeletal: Reports no symptoms
Skin: Reports no symptoms
Neurological: Reports no symptoms
Psychiatric: Reports no symptoms
Phy Exam
General Physical Exam
General Presentation: no apparent distress
General age: appears stated age
General Skin: warm and dry
General Habitus: normal
General Mental: alert
General Hydration: appears well hydrated
Cardiovascular Exam
Cardiovascular Exam: regular rate/rhythm, no murmur and normal peripheral pulses
Pulmonary Exam
Pulmonary Exam: lungs clear, no respiratory distress and other (+ tenderness to left anterior chest wall just below PM site ; no erythema )
Neurological Exam
Neurological Exam: alert and oriented x3
Musculoskeletal Exam
Musculoskeletal Exam: full ROM
Skin Exam
Skin Exam: normal color and warm/dry
Psychiatric Exam
Psychiatric Exam: normal mood/affect
Scores
Heart Score for Chest Pain Patients
STEMI patient?: Not applicable
Course
Orders/Labs/Results
Orders:
Orders
11/23/24 09:55
Electrocardiogram (*1) Urgent
Reason for Study: Chest Pain
EKG- Treatment ONCE
11/23/24 11:05
CMP [Comprehensive Metabolic Panel] Urgent
Complete Blood Count/With Diff Urgent
Troponin I Urgent
11/23/24 13:41
CT Chest With Iv Contrast Urgent
Comment:
Reason For Exam: pain to left chest around pacemaker region
11/23/24 14:25
Ketorolac [Toradol] 15 mg IV NOW STA
Abnormal Lab Results
11/23/24
11:05
Chloride 108 H mmol/L
(98-107)
BUN 20 H mg/dl
(7-17)
Glucose 113 H mg/dl
(70-99)
11/23/24 11:05
11/23/24 11:05
Vital Signs
Initial and Last Documented VS:
Initial Vital Signs
Temp Pulse Resp BP Pulse Ox
98.1 F 65 16 136/87 95
11/23/24 10:00 11/23/24 10:00 11/23/24 10:00 11/23/24 10:00 11/23/24 10:00
Last Documented Vital Signs
Temp Pulse Resp BP Pulse Ox
98.1 F 60 21 136/91 97
11/23/24 10:00 11/23/24 14:30 11/23/24 14:30 11/23/24 14:30 11/23/24 14:30
Immigration Judge consulted with Physician
Immigration Judge consulted with physician?: Yes
Name of Physician Consulted: Sommer
MDM/Problems Addressed
Differential Diagnosis Includes:
Not limited to collection around pacemaker site less likely, musculoskeletal pain less likely ACS
MDM/Problems Addressed:
as documented patient is a 54-year-old female with history of sick sinus syndrome pacemaker in 2023 presents to the ER for evaluation. She has had intermittent chest pain for the past several weeks however worsened recently. She reports underneath
her pacemaker to her left anterior chest she feels very sore she almost describes this as a' feeling swollen' type of sensation. She does feel little shortness of breath with this she presents awake alert in no acute distress lungs are clear
nonhypoxic nontachycardic nontachypneic afebrile normal white count stable hemoglobin. She is tender distal to the pacemaker site however there is no obvious redness to the site. Her cardiac troponin is negative. Her EKG shows atrial paced
rhythm. Case discussed with Dr. Novoa who evaluated patient we will obtain CAT scan to rule out a collection though unlikelu, possible musculoskeletal. Other imaging looking at the breast/breast tissue including mammogram and/or ultrasound.
Patient does not have a family doctor will refer patient to family practice clinic.
If ct neg will plan for d/c home.
1514: CAT scan negative will DC with outpatient follow-up family doctor for reevaluation and possible breast imaging as well
Chronic conditions affecting care:
Sick sinus syndrome pacemaker history
*Radiology
Radiology exam reviewed: radiology read reviewed
*Pulse Oximetry
Patient hypoxic: no
*Critical Care Note
Total Time (30-74mins, 75-104mins- exclusive of procedures): Not Applicable
ED Attending Note
-
Portions of this chart may have been created with voice recognition software.� Occasional wrong word or��sound alike� substitutions may have occurred due to the inherent limitations of voice recognition software.
Discharge Plan
Departure
Patient Disposition: Home (Routine Discharge)
Date of Disposition: 11/23/24
Time of Disposition: 15:14
Patient with high blood pressure during this ER visit?: Yes
Covid-19: Not Applicable
Discharge Problem:
Chest wall pain
Instructions: Chest pain - Discharge instructions, BLOOD PRESSURE
Prescriptions:
No Action
acetaminophen 325 mg Tablet
650 mg PO Q4HPRN PRN (Reason: Mild Pain / Temp > 101) Qty: 100 0RF
alprazolam [Xanax] 0.5 mg Tablet
0.5 mg PO DAILY PRN (Reason: anxiety)
gabapentin 300 mg Capsule
300 mg PO BID PRN (Reason: nerve spasm)
amlodipine 5 mg tablet
5 mg PO DAILY Qty: 30 0RF
Referrals:
[facility] [Provider Group]
[facility] [Outside]
Kelvin Vieira MD [Active] -
NONE,* [Family Provider] -
Activity Restrictions/Additional Instructions:
As discussed your pacemaker was in good position CAT scan was negative. Please follow-up with family practice clinic since you do not have a primary care physician at this time. You may need other imaging to look at the breast and breast tissue
including mammogram and/or ultrasound also please have a family doctor. May take Tylenol for discomfort. Return if any worsening of symptoms.
Interventions
Interventions:
*Risk Screen - Suicide Last Done: 11/23/24 10:03
*General Assessment Last Done: 11/23/24 11:20
*Neglect/Abuse Screening Last Done: 11/23/24 10:03
*ED- Fall Risk Assessment Last Done: 11/23/24 11:20
*ED COVID-19 Vaccine History Last Done: 11/23/24 11:20
*Nursing Disposition Last Done: 11/23/24 15:41
ED- Cardiac Assessment Last Done: 11/23/24 11:20
Discharge Date and Time
Discharge Date/Time: 11/23/24 15:41
Print Language: ROMANSH
[2024-11-23] MEDS: TORADOL 15 MG IV (14:33)
== END 2024-11-23 15:41 | disposition home or self-care (01) ==
LOC: EMR 09:53
PROVIDERS: EMERGENCY PHYSICIAN Emergency Medicine
DX: R07.89 Other chest pain (principal); I10 Essential (primary) hypertension; I49.5 Sick sinus syndrome; Z95.0 Presence of cardiac pacemaker
CPT/HCPCS: 96374; 99284; 71260; 80053; 84484; 85025; 93005; Q9967